=== PATIENT | male | born 1955 | race Caucasian/White ===

== ENCOUNTER → 2016-09-09 | Day surgery (SDC) | payer MEDICARE, OTHER ==
[~2016-09-09] VITALS: Ht 167.6 cm; Wt 70.5 kg
[~2016-09-09] MED LIST: ACET325T PO; ACIDCAP5; AMBI10TA PO; AMLO5 PO; CEFT500T3 PO; CITRSOL3 PO; CLON0.1T PO; CYAN100015 BUCCAL; DILT-47 PO; DO NOT ADM ANY ANTICOAGULANT DRUGS XX PRN; DOCU100C PO; DULC10SU3 RECTAL; FAMOTIDINE 20 MG/2 ML VIAL ONE; GABA100C4 PO; INSULIN HUMAN REGULAR 1,000 UNITS/10 ML VIAL SQ PRN; IPRASOL INH; LACTATED RINGER'S 1000 ML INJ 1,000 ML IV ONE; LACTATED RINGER'S 1000 ML IV SCH; LEVA750T PO; LEVO500T3 PO; LORA-373 PO; LORA10TA PO; MAGNSOL2 PO; MEGE40SU PO; METOPROLOL TARTRATE 25 MG TAB PO PRN; MIDAZOLAM HCL 2 MG/2 ML VIAL ONE; MILKSUS PO; MULTTAB67 PO; NUED20CA PO; ONDANSETRON HCL 4 MG/2 ML VIAL IV PUSH ONE; ONDANSETRON HCL 4 MG/2 ML VIAL IV PUSH PRN; OXYC-405 PO; OXYC20TA17 PO; PERC10TA27 PO; PERC5TAB12 PO; PHENYLEPH/NS 1000 MCG/10 ML SYR IV ONE; PROPOFOL 200 MG/20 ML AMP IV ONE; RISP.25 PO; SODIUM CHLORID 0.9% 500 ML IV SCH; ePHEDrine/NS 50 MG/5 ML SYR IV ONE; oxyCODONE/ACETAMINOPHEN 5 MG/325 MG TAB PO PRN
[2016-09-09 07:47] VITALS: BP 107/65; PULSE 102; RESP 18; TEMP 98.1; O2SAT 93
[2016-09-09 08:51] LABS: AUTOMATED NEUTROPHIL # 6.9 TH/MM3 (1.8-7.7); BASOPHIL # 0.1 TH/MM3 (0-0.2); BASOPHIL % 0.8 % (0.0-2.0); EOSINOPHIL # 0.2 TH/MM3 (0-0.4); EOSINOPHIL % 2.5 % (0.0-4.0); HEMATOCRIT 37.4 % (39.0-51.0); HEMO FLAGS DIFF FINAL; LYMPH % 11.5 % (9.0-44.0); MEAN CELL VOLUME 92.5 FL (80.0-100.0); MEAN CORPUSCULAR HEMOGLOBIN 29.6 PG (27.0-34.0); MONO % 7.6 % (0.0-8.0); NEUT % 77.6 % (16.0-70.0); PLATELET COUNT 252 TH/MM3 (150-450); RED BLOOD COUNT 4.05 MIL/MM3 (4.50-5.90); RED CELL DISTRIBUTION WIDTH 15.4 % (11.6-17.2); WHITE BLOOD COUNT 8.8 TH/MM3 (4.0-11.0)
--- NOTE | 2016-09-09 09:21 | RADRPT ---
EXAM DATE/TIME: 09/09/2016 07:31 [facility] COMPARISON: CT ABDOMEN & PELVIS W/O CONTRAST, May 11, 2016, 1:17. INDICATIONS : Evaluate abdomen for pre-op clearance. MEDICAL HISTORY : Hypertension. Chronic obstructive pulmonary disease. SURGICAL HISTORY : None. ENCOUNTER: Initial ACUITY: 1 day PAIN SCORE: 0/10 LOCATION: Abdomen. FINDINGS: Supine view of the abdomen was performed. The abdominal bowel gas pattern is normal. No abnormal ma sses,, or organomegaly is seen. The osseous structures are unremarkable. There is a right ureteral s tent in place no calculi along the course of this. Multiple left renal calculi are appreciated as not ed on the remote CT scan. CONCLUSION: Right ureteral stent in place. Multiple left renal calculi Marciano Villa MD on September 09, 2016 at 9:18 Board Certified Radiologist. This report was verified electronically.
[2016-09-09 12:50] VITALS: TEMP 98
[2016-09-09 14:30] VITALS: BP 100/80; PULSE 108; RESP 18; O2SAT 94
--- NOTE | 2016-09-15 13:20 | MP ---
cc: KENYON ROSAS MD DATE OF SURGERY September 09, 2016 INDICATIONS FOR PROCEDURE The case of a 61-year-old gentleman with multiple left renal calculi who presents today to undergo extracorporeal shockwave lithotripsy. PREOPERATIVE DIAGNOSIS Multiple left renal calculi. POSTOPERATIVE DIAGNOSIS Multiple left renal calculi. ATTENDING SURGEON Dr. Rosas. ANESTHESIA General. PROCEDURE PERFORMED Extracorporeal shockwave lithotripsy of multiple left-sided renal calculi. COMPLICATIONS None. ESTIMATED BLOOD LOSS None. SPECIMENS None. OPERATIVE PROCEDURE IN DETAIL The patient was brought to the operating room suite and placed on the lithotripsy table. He was then placed under general anesthesia. After an appropriate time-out was undertaken, the patient's cluster of left renal stones were localized and he subsequently received shock wave lithotripsy. The patient was noted to have a cluster of stones centrally located as well as some more peripherally located stones. The focus of attention was towards the cluster of stones involving the mid-aspect of the left kidney. The patient ended up receiving a total of 3000 shocks with a maximum power level setting of 20 utilizing the [employer] Piezolith 3000 device. At the conclusion of the procedure the stones did appear somewhat spread out and plastering contractor in intensity consistent with at least some degree of fragmentation. The patient tolerated the procedure without complications and was transferred to the PACU in satisfactory condition. Kenyon Rosas MD BPS/SSB /12:04 PM /1:14 PM
== END | disposition home or self-care (01) ==
LOC: HSDC 06:46
PROVIDERS: ATTEND Urology
DX: N20.0 Calculus of kidney (principal)
CPT/HCPCS: 00873; 50590; 74000; 85025; J2250; J2370; J2405; J7120

== ENCOUNTER 2016-10-14 06:41 | Inpatient (IN) | payer MEDICARE, OTHER ==
[~2016-10-14] VITALS: Ht 167.6 cm; Wt 53.5 kg
[~2016-10-14 06:41] MED LIST changes: -ACIDCAP5; -CEFT500T3 PO; -CYAN100015 BUCCAL; -DO NOT ADM ANY ANTICOAGULANT DRUGS XX PRN; -DULC10SU3 RECTAL; -FAMOTIDINE 20 MG/2 ML VIAL ONE; -INSULIN HUMAN REGULAR 1,000 UNITS/10 ML VIAL SQ PRN; -LACTATED RINGER'S 1000 ML INJ 1,000 ML IV ONE; -LACTATED RINGER'S 1000 ML IV SCH; -LEVA750T PO; -MAGNSOL2 PO; -MEGE40SU PO; -METOPROLOL TARTRATE 25 MG TAB PO PRN; -MIDAZOLAM HCL 2 MG/2 ML VIAL ONE; -MULTTAB67 PO; -ONDANSETRON HCL 4 MG/2 ML VIAL IV PUSH ONE; -ONDANSETRON HCL 4 MG/2 ML VIAL IV PUSH PRN; -OXYC20TA17 PO; -PERC5TAB12 PO; -PHENYLEPH/NS 1000 MCG/10 ML SYR IV ONE; -PROPOFOL 200 MG/20 ML AMP IV ONE; -RISP.25 PO; -SODIUM CHLORID 0.9% 500 ML IV SCH; -ePHEDrine/NS 50 MG/5 ML SYR IV ONE; -oxyCODONE/ACETAMINOPHEN 5 MG/325 MG TAB PO PRN
[2016-10-14 06:50] VITALS: BP 101/62; PULSE 103; RESP 20; TEMP 97.9; O2SAT 90
[2016-10-14] MEDS ORDERED: INSULIN HUMAN REGULAR 1,000 UNITS/10 ML VIAL SQ PRN (07:00)
[2016-10-14] MEDS ORDERED: SODIUM CHLORID 0.9% 500 ML IV SCH (07:00)
[2016-10-14] MEDS ORDERED: ceFAZolin 1,000 MG/NS 100 ML IV SCH ×2 (07:00)
[2016-10-14] MEDS ORDERED: METOPROLOL TARTRATE 25 MG TAB PO PRN (07:00)
[2016-10-14] MEDS: LACTATED RINGER'S 1000 ML IV SCH (07:45)
--- NOTE | 2016-10-14 07:53 | RADRPT ---
EXAM DATE/TIME: 10/14/2016 07:25 [facility] COMPARISON: ABDOMEN KUB ONLY, September 09, 2016, 7:31. INDICATIONS : Pre op right lithotripsy. MEDICAL HISTORY : None. SURGICAL HISTORY : None. ENCOUNTER: Initial ACUITY: 1 day PAIN SCORE: Non-responsive. LOCATION: Right abdomen. FINDINGS: Supine view of the abdomen was performed. The right nephroureteral stent in good position. Multiple right-sided renal calculi the largest measuring 13 mm. And 9 and 8 mm calculi are also seen. Several other smaller ones are noted. No calculi seen along the course of the stent. Multiple left-sided prerna l calculi appear unchanged. The abdominal bowel gas pattern is normal. No abnormal masses, calcifica tions, or organomegaly is seen. Left femoral neck fracture with displacement again seen. CONCLUSION: 1. Right sided nephroureteral stent with multiple right-sided calculi the largest measuring 13 mm. 2. Multiple left-sided renal calculi appear unchanged. Fahad Uribe MD on October 14, 2016 at 7:49 Board Certified Radiologist. This report was verified electronically.
[2016-10-14 08:07] LABS: BASOPHIL % 0.2 % (0.0-2.0); EOSINOPHIL % 0.4 % (0.0-4.0); HEMATOCRIT 34.7 % (39.0-51.0); LYMPH % 4.2 % (9.0-44.0); LYMPHOCYTE # 0.5 TH/MM3 (1.0-4.8); MEAN CELL VOLUME 92.2 FL (80.0-100.0); MEAN CORPUSCULAR HEMOGLOBIN 30.3 PG (27.0-34.0); MEAN CORPUSCULAR HGB CONC 32.9 % (32.0-36.0); MONO % 3.6 % (0.0-8.0); NEUT % 91.6 % (16.0-70.0); PLATELET COUNT 80 TH/MM3 (150-450); RED BLOOD COUNT 3.77 MIL/MM3 (4.50-5.90); RED CELL DISTRIBUTION WIDTH 14.8 % (11.6-17.2); WHITE BLOOD COUNT 10.9 TH/MM3 (4.0-11.0)
[2016-10-14 08:10] LABS: HEMO FLAGS AUTO DIFF
[2016-10-14 08:50] LABS: BANDS 16 % (0-6); EOSINOPHILS 1 % (0-4); NEUTROPHIL # MANUAL DIFF 10.2 TH/MM3 (1.8-7.7); PLATELET ESTIMATE SMEAR LOW (NORMAL); PLATELET MORPHOLOGY NORMAL (NORMAL); POLYS (SEG NEUTROPHILS) 78 % (16-70); SCAN/DIFF FINAL DIFF MANUAL; WBC DIFF SAMPLE 100
[2016-10-14] MEDS ORDERED: ACETAMINOPHEN 325 MG TAB PO PRN ×2 (11:45)
[2016-10-14] MEDS ORDERED: RESP: ALBUTEROL 2.5 MG/IPRATROPIUM 0.5 MG NEB (PRN) NEB (11:45)
[2016-10-14] MEDS ORDERED: MAGNESIUM HYDROXIDE SUSP 30 ML CUP PO PRN (11:45)
[2016-10-14] MEDS ORDERED: ONDANSETRON HCL 4 MG/2 ML VIAL IVP PRN (11:45)
[2016-10-14] MEDS ORDERED: SODIUM CHLORIDE 0.9% FLUSH 5 ML FLUSH FLUSH PRN (11:45)
[2016-10-14] MEDS ORDERED: NALOXONE HCL 0.4 MG/ML AMP IV PRN (11:45)
--- NOTE | 2016-10-14 11:54 | HHI.HP ---
[facility] Primary Care Physician No Primary Care Physician Admission Diagnosis Diagnoses: (1) Thrombocytopenia (2) History of CVA (cerebrovascular accident) (3) Nephrolithiasis Chief Complaint: Abnormal lab Travel History International Travel<30 Days: No Contact w/Intl Traveler <30 Da: No Traveled to Known Affected Are: No History of Present Illness 61 year-old male with a history of prior CVA with residual left-sided hemiparesis, cerebral aneurysm status post coiling, bilateral renal calculi with retained double-J stent in place who was scheduled to undergo repeat right sided ESWL today 10/14/16 by urology however patient was found to have abnormal lab including platelet of 80. Patient denies any history of easy bruising, GI bleed, hemoptysis, hematuria. He is currently a resident of a local nursing facility, where patient is being treated with Nuedexta. He was seen in same day surgery, and only alert and oriented to self, Review of Systems Other 12 systems reviewed and are negative except for the one mentioned in the history of present illness Past Family Social History Past Medical History Prior history of CVA with left-sided hemiparesis Hypertension History of bilateral renal calculi Past Surgical History Prior coronary of cerebral aneurysm Kidney stone removed in the past, lithotripsy 05/13/16 TURP Reported Medications See EMR Allergies: Coded Allergies: No Known Allergies (Unverified , 10/14/16) Family History Father from complication of lung cancer Social History No history of tobacco, alcohol or illicit drug intake. Patient is a resident of a local halfway facility Physical Exam Vital Signs Vital Signs Date Time Temp Pulse Resp B/P Pulse Ox O2 Delivery O2 Flow Rate FiO2 10/14/16 06:50 97.9 103 20 101/62 90 Physical Exam GENERAL: This is a well-nourished, well-developed patient, in no apparent distress with left-sided hemiparesis SKIN: No rashes, ecchymoses or lesions. Cool and dry. HEAD: Atraumatic. Normocephalic. No temporal or scalp tenderness. EYES: Pupils equal round and reactive. Extraocular motions intact. No scleral icterus. No injection or drainage. ENT: Nose without bleeding, purulent drainage or septal hematoma. Throat without erythema, tonsillar hypertrophy or exudate. Uvula midline. Airway patent. NECK: Trachea midline. No JVD or lymphadenopathy. Supple, nontender, no meningeal signs. CARDIOVASCULAR: Regular rate and rhythm without murmurs, gallops, or rubs. RESPIRATORY: Clear to auscultation. Breath sounds equal bilaterally. No wheezes , rales, or rhonchi. GASTROINTESTINAL: Abdomen soft, non-tender, nondistended. No hepato-splenomegaly , or palpable masses. No guarding. MUSCULOSKELETAL: Extremities without clubbing, cyanosis, or edema. splint applied to left lower extremity NEUROLOGICAL: Awake and alert. Cranial nerves II through XII intact. Motor and sensory grossly within normal limits. Five out of 5 muscle strength in RUE/RLL. Left upper extremity hemiparesis. Normal speech. Laboratory Laboratory Tests Test 10/14/16 07:55 White Blood Count 10.9 Red Blood Count 3.77 Hemoglobin 11.4 Hematocrit 34.7 Mean Corpuscular Volume 92.2 Mean Corpuscular Hemoglobin 30.3 Mean Corpuscular Hemoglobin 32.9 Concent Red Cell Distribution Width 14.8 Platelet Count 80 Mean Platelet Volume 10.3 Neutrophils (%) (Auto) 91.6 Lymphocytes (%) (Auto) 4.2 Monocytes (%) (Auto) 3.6 Eosinophils (%) (Auto) 0.4 Basophils (%) (Auto) 0.2 Neutrophils # (Auto) 10.0 Lymphocytes # (Auto) 0.5 Monocytes # (Auto) 0.4 Eosinophils # (Auto) 0.0 Basophils # (Auto) 0.0 CBC Comment AUTO DIFF Differential Total Cells 100 Counted Neutrophils % (Manual) 78 Band Neutrophils % 16 Lymphocytes % 2 Monocytes % 3 Eosinophils % 1 Neutrophils # (Manual) 10.2 Differential Comment FINAL DIFF MANUAL Platelet Estimate LOW Platelet Morphology Comment NORMAL Result Diagram: 10/14/16 0755 Imaging Last Impressions Abdomen X-Ray 10/14/16 0000 Signed Impressions: Service Date/Time: Friday, October 14, 2016 07:25 - CONCLUSION: 1. Right sided nephroureteral stent with multiple right-sided calculi the largest measuring 13 mm. 2. Multiple left-sided renal calculi appear unchanged. Fahad Uribe MD Assessment and Plan Problem List: (1) Thrombocytopenia ICD Code: D69.6 Status: Acute (2) Nephrolithiasis ICD Code: N20.0 Status: Acute (3) History of CVA (cerebrovascular accident) ICD Code: Z86.73 Status: Acute Assessment and Plan 61-year-old male with 1-Thrombocytopenia: Platelet of 80,patient denies any recent bleeding history. Will hold Nuedexta and consult hematology for further assistance with clearance for ESWL. AT This point patient does not need any platelet transfusion 2-History of renal calculi: Abdomen x-ray negative per review with finding of Right sided nephroureteral stent with multiple right-sided calculi the largest measuring 13 mm. 2. Multiple left-sided renal calculi appear unchanged. I discussed the case with Dr. Orlando, urology, however he stated patient can only be scheduled for ESWL once a week, therefore if thrombocytopenia resolved he would proceed with the procedure next week. 3-Hypertension: Resume Norvasc, Cardizem 4-Other chronic medical conditions: Resume outpatient medication 5-DVT prophylaxis: SCDs to right lower extremity only Check CBC, BMP, UA Code Status Full code Discussed Condition With Patient Fahad Chaidez MD Oct 14, 2016 11:54
[2016-10-14] MEDS ORDERED: LEVA750T PO (12:08)
[2016-10-14] MEDS ORDERED: OXYC20TA17 PO (12:08)
[2016-10-14] MEDS ORDERED: AMBI10TA PO (12:08)
--- NOTE | 2016-10-14 12:45 | PD.CONS ---
HPI Service Urology Consult Requested By Primary Care Physician No Primary Care Physician Diagnosis: (1) Thrombocytopenia ICD Code: D69.6 (2) Nephrolithiasis ICD Code: N20.0 (3) History of CVA (cerebrovascular accident) ICD Code: Z86.73 History of Present Illness 61-year-old male who was initially admitted today to undergo right extraportal shockwave lithotripsy. He was noted to have a platelet count of 80,000 and the surgery was canceled. At this consult was ordered and Dr. West has seen and evaluated the patient. He notes that he is on the current medication that may decrease his platelet count (Nuedexta) and a hematology consult is currently pending. Patient underwent cystoscopy right double-J stent insertion back at the end of April. He last underwent left extracoporeal shockwave lithotripsy at the end of August for multiple small stones in the left kidney. He has remaining stones on KUB x-ray today both in the left kidney and the right kidney. Review of Systems ROS Limitations: Altered Mental Status Ears, nose, mouth, throat: DENIES: Tinnitus Respiratory: DENIES: Cough Cardiovascular: DENIES: Chest pain Gastrointestinal: DENIES: Abdominal pain Musculoskeletal: COMPLAINS OF: Joint pain Integumentary: COMPLAINS OF: Rash, DENIES: Abnormal pigmentation Hematologic/lymphatic: DENIES: Bruising Immunologic/allergic: DENIES: Eczema Neurologic: COMPLAINS OF: Abnormal gait Past Family Social History Past Medical History GERD Hyperlipidemia Nephrolithiasis BPH with obstruction CVA Hypertension Past Surgical History TURP Coiling of cerebral aneurysm Lithotripsy for kidney stones Cystoscopy with stent insertion Allergies: Coded Allergies: No Known Allergies (Unverified , 10/14/16) Family History Lung cancer Social History Currently resides in a [facility] Denies smoking, drinking, using drugs Physical Exam Vital Signs Vital Signs Date Time Temp Pulse Resp B/P Pulse Ox O2 Delivery O2 Flow Rate FiO2 10/14/16 06:50 97.9 103 20 101/62 90 Physical Exam GENERAL: This is a well-nourished, well-developed patient, in no apparent distress. SKIN: No rashes, ecchymoses or lesions. Cool and dry. HEAD: Atraumatic. Normocephalic. No temporal or scalp tenderness. EYES: Pupils equal round and reactive. Extraocular motions intact. No scleral icterus. No injection or drainage. ENT: Nose without bleeding, purulent drainage or septal hematoma. Throat without erythema, tonsillar hypertrophy or exudate. Uvula midline. Airway patent. NECK: Trachea midline. No JVD or lymphadenopathy. Supple, nontender, no meningeal signs. CARDIOVASCULAR: Regular rate and rhythm without murmurs, gallops, or rubs. RESPIRATORY: Clear to auscultation. Breath sounds equal bilaterally. No wheezes , rales, or rhonchi. GASTROINTESTINAL: Abdomen soft, non-tender, nondistended. No hepato-splenomegaly , or palpable masses. No guarding. GENITOURINARY:aguilar in place; dark urine noted; testes descended MUSCULOSKELETAL: Extremities without clubbing, cyanosis, or edema. No joint tenderness, effusion, or edema noted. No calf tenderness. Negative Homans sign bilaterally. NEUROLOGICAL: Awake and alert. Cranial nerves II through XII intact. Motor and sensory grossly within normal limits. Five out of 5 muscle strength in all muscle groups. Normal speech. Laboratory Laboratory Tests Test 10/14/16 07:55 White Blood Count 10.9 Red Blood Count 3.77 Hemoglobin 11.4 Hematocrit 34.7 Mean Corpuscular Volume 92.2 Mean Corpuscular Hemoglobin 30.3 Mean Corpuscular Hemoglobin 32.9 Concent Red Cell Distribution Width 14.8 Platelet Count 80 Mean Platelet Volume 10.3 Neutrophils (%) (Auto) 91.6 Lymphocytes (%) (Auto) 4.2 Monocytes (%) (Auto) 3.6 Eosinophils (%) (Auto) 0.4 Basophils (%) (Auto) 0.2 Neutrophils # (Auto) 10.0 Lymphocytes # (Auto) 0.5 Monocytes # (Auto) 0.4 Eosinophils # (Auto) 0.0 Basophils # (Auto) 0.0 CBC Comment AUTO DIFF Differential Total Cells 100 Counted Neutrophils % (Manual) 78 Band Neutrophils % 16 Lymphocytes % 2 Monocytes % 3 Eosinophils % 1 Neutrophils # (Manual) 10.2 Differential Comment FINAL DIFF MANUAL Platelet Estimate LOW Platelet Morphology Comment NORMAL Result Diagram: 10/14/16 0755 Assessment and Plan Assessment and Plan 61-year-old male with history of bilateral nephrolithiasis. Patient was scheduled for ESWL therapy today but needed to be canceled due to low platelet count of 80,000. Medicine input appreciated for causation of thrombocytopenia. Hematology consult pending. We'll need to reschedule ESWL at a later date after thrombocytopenia has resolved and recommendations are implemented. Patient will need to be transferred back to the [facility] and then rescheduled for outpatient ESWL therapy. Gray Orlando DO Oct 14, 2016 12:45
[2016-10-14] MEDS ORDERED: NUED20CA PO (13:43)
[2016-10-14] MEDS ORDERED: CEFT500T3 PO (13:43)
[2016-10-14] MEDS ORDERED: cloNIDine HCL 0.1 MG TAB PO SCH (14:00)
[2016-10-14 14:01] VITALS: O2SAT 95
[2016-10-14 14:01] LABS: ALKALINE PHOSPHATASE 59 U/L (45-117); ALT (GPT) 14 U/L (12-78); ANION GAP 12 MEQ/L (5-15); AST (GOT) 33 U/L (15-37); BICARBONATE 24.9 MEQ/L (21.0-32.0); CHLORIDE 106 MEQ/L (98-107); GLOMERULAR FILTRATION RATE 23 ML/MIN (>89); SODIUM (NA) 143 MEQ/L (136-145); TOTAL BILIRUBIN ADULT 0.6 MG/DL (0.2-1.0)
[2016-10-14 14:08] LABS: BLOOD UREA NITROGEN 50 MG/DL (7-18)
[2016-10-14 14:23] LABS: BLOOD, URINE MOD (NEG); GLUCOSE,URINE NEG (NEG); KETONE, URINE NEG (NEG); MUCUS URINE FEW /lpf (OCC); NITRITE,URINE NEG (NEG); SQUAMOUS EPITHELIAL CELL URINE 1 /hpf (0-5)
[2016-10-14 14:26] LABS: URINE COLOR RED (YELLW/STRAW)
[2016-10-14 14:28] LABS: BACTERIA, URINE FEW /hpf; COMMENT (UR) CULTURE INDICATED; CULTURE IF INDICATED CULTURE INDICATED
--- NOTE | 2016-10-14 14:28 | RADRPT ---
EXAM DATE/TIME: 10/14/2016 14:12 [facility] COMPARISON: ABDOMEN KUB ONLY, October 14, 2016, 7:25. INDICATIONS : Productive cough. MEDICAL HISTORY : Hypertension. Chronic obstructive pulmonary disease. pneumonia. SURGICAL HISTORY : None. ENCOUNTER: Initial ACUITY: 1 day PAIN SCORE: Non-responsive. LOCATION: Bilateral chest FINDINGS: The heart is at the upper limits of normal in size. There is diffuse infiltrate throughout the left l ower lobe with left basilar effusion. Findings would be consistent with a left basilar pneumonia. The re is minimal patchy infiltrate seen at the right lung base as well. The bony structures are grossly intact. CONCLUSION: 1. Diffuse infiltrate throughout the left lung base concerning for a left basilar pneumonia. Raffy Wyatt MD on October 14, 2016 at 14:25 Board Certified Radiologist. This report was verified electronically.
[2016-10-14] MEDS ORDERED: DOCUSATE SODIUM 100 MG CAP PO PRN (16:45)
[2016-10-14] MEDS: ACETAMINOPHEN/HYDROcodone 325 MG/5 MG TAB PO PRN ×2 (17:30→23:38)
[2016-10-14] MEDS: cefTRIAXone INJ 1,000 MG in SODIUM CHLORIDE 0.9% INJ 100 ML IV SCH (18:00)
[2016-10-14 20:00] VITALS: BP 82/52; PULSE 86; RESP 18; TEMP 97.9; O2SAT 93
[2016-10-14] MEDS: SODIUM CHLORIDE 0.9% FLUSH 5 ML FLUSH FLUSH SCH (21:00)
[2016-10-14] MEDS: oxyCODONE HCL 20 MG CONTROLLED RELEASE TAB PO SCH (21:05)
--- NOTE | 2016-10-14 21:52 | MB ---
cc: JESIKA FISHMAN M.D., ERIC DATE OF CONSULTATION: 10/14/[address] Chaidez. REASON FOR CONSULTATION Hematology was consulted to render an opinion regarding a patient with thrombocytopenia. HISTORY OF PRESENT ILLNESS The patient is a 61-year-old male [facility] resident brought in today for outpatient lithotripsy; however, he was found to have a platelet count of 80,000 and the procedure was cancelled. The patient is not a very good historian but stated that he was recently found to have pneumonia. He stated he had cough and shortness of breath and chest x-ray showed pneumonia, he was started on antibiotic. He stated the cough has improved. He denies any chest pain. He denies any fever or chills. He has no nausea, vomiting or abdominal pain. Denies any bleeding or bruising. According to the nursing staff, the patient had dark yellow urine and has multiple decubitus ulcers. PAST MEDICAL HISTORY 1. Stroke with left-sided weakness. 2. Cerebral aneurysm status post coiling. 3. Bilateral renal calculi. 4. Hypertension. PAST SURGICAL HISTORY 1. Bilateral double-J stent placement. 2. Coiling of the cerebral aneurysm. 3. Lithotripsy in August. 4. TURP. FAMILY HISTORY Noncontributory. He has a brother in [place]. He has no children. SOCIAL HISTORY He does not smoke or drink alcohol. He resides in the [facility]. ALLERGIES NO KNOWN DRUG ALLERGIES. MEDICATIONS 1. Norvasc. 2. Cardizem. 3. Loratadine. 4. Zithromax. 5. OxyContin. 6. Ceftriaxone. 7. Cephazolin. 8. Levaquin listed on his [facility] record. 9. Nuedexta also listed. REVIEW OF SYSTEMS CONSTITUTIONAL: Denies any fever or chills. EYES: Denies any blurry vision, double vision. ENT: Denies any mouth sores or voice changes. CARDIOVASCULAR: Denies any chest pressure or palpitations. RESPIRATORY: As above. GASTROINTESTINAL: Denies any nausea, vomiting or abdominal pain. Denies any melena or hematochezia. GENITOURINARY: As above. MUSCULOSKELETAL: A recent fracture of the left hip after a fall. HEMATOLOGIC: As above. ENDOCRINE: Negative. DERMATOLOGIC: As above. PSYCHIATRIC: Negative. NEUROLOGIC: Negative. PHYSICAL EXAMINATION VITAL SIGNS: Temperature 97.1, blood pressure 105/66, O2 saturation 95% on 4 liters nasal cannula. GENERAL: He is alert, oriented, he looks very weak and older than stated age. HEENT: Atraumatic, normocephalic. Pupils equal, round and reactive to light. Extraocular muscles intact. No scleral icterus. Oropharynx - dry mucosa, no lesion. NECK: No thyromegaly. No palpable mass. LYMPHATIC: No palpable cervical, clavicular, axillary or inguinal lymph nodes. CARDIOVASCULAR: Regular S1, S2. LUNGS: Clear to auscultation anteriorly. ABDOMEN: Soft, nontender. I could not palpate liver or spleen. EXTREMITIES: No cyanosis, no clubbing, no edema. The left lower extremity in a soft cast. SKIN: Decubitus ulcer. NEUROLOGIC: Left-sided hemiparesis. LABORATORY DATA Reviewed. ASSESSMENT 1. Thrombocytopenia which appeared to be acute. His platelet count in August of 2016 was 252,000. Today his platelet count was 80,000. I think the thrombocytopenia is due to a consumptive process. He possibly has DIC due to recent pneumonia. He may also have consumptive process from the nonhealing hip fracture and decubitus ulcer and wound. He has no bleeding noted. I am going to check his DIC panel and monitor his CBC, hopefully it will trend back up once his infection is treated. Nuedexta can also cause thrombocytopenia and it has been discontinued. 2. Pneumonia. He stated he was diagnosed with pneumonia while in the [place] [facility] where he was treated with Levaquin. His repeat chest x-ray showed diffuse infiltrates throughout the left lung base. He was started back on Rocephin and azithromycin. 3. Decubitus ulcer. Wound care has been consulted. 4. Bilateral renal calculi and double J stent placement. The lithotripsy was cancelled today because of the low platelet count. 5. Mild anemia, likely due to underlying infection. We will check an iron study and a vitamin study also. 6. History of stroke with left-sided hemiparesis. 7. Left hip fracture. He did not have surgery. RECOMMENDATIONS 1. Proceed anemia workup. 2. Check DIC panel. 3. Monitor CBC. 4. Continue antibiotic per primary team. 5. Nuedexta has been discontinued. Thank you Dr. Chaidez for asking me to see this patient. MD MINDY Solorio/DANY /6:16 PM /9:23 PM [facility]
[2016-10-15] VITALS (11 sets, daily range): BP systolic 82–107; BP diastolic 50–63; PULSE 77–96; RESP 16–18; TEMP 97.4–98.7; O2SAT 93–100
[2016-10-15] MEDS: LACTATED RINGER'S 1000 ML IV SCH (07:00)
[2016-10-15 07:55] LABS: AUTOMATED NEUTROPHIL # 5.4 TH/MM3 (1.8-7.7); BASOPHIL % 0.1 % (0.0-2.0); EOSINOPHIL # 0.1 TH/MM3 (0-0.4); EOSINOPHIL % 1.8 % (0.0-4.0); HEMATOCRIT 29.3 % (39.0-51.0); LYMPH % 8.3 % (9.0-44.0); LYMPHOCYTE # 0.5 TH/MM3 (1.0-4.8); MEAN CELL VOLUME 90.5 FL (80.0-100.0); MEAN CORPUSCULAR HEMOGLOBIN 30.5 PG (27.0-34.0); MEAN CORPUSCULAR HGB CONC 33.7 % (32.0-36.0); MONO % 4.8 % (0.0-8.0); PLATELET COUNT 59 TH/MM3 (150-450); RED BLOOD COUNT 3.24 MIL/MM3 (4.50-5.90); RED CELL DISTRIBUTION WIDTH 14.7 % (11.6-17.2); WHITE BLOOD COUNT 6.4 TH/MM3 (4.0-11.0)
[2016-10-15 08:02] LABS: RETIC % 0.4 % (0.4-3.0)
[2016-10-15 08:04] LABS: HEMO FLAGS AUTO DIFF
[2016-10-15 08:11] LABS: APTT (PATIENT) 36.6 SEC (24.3-30.1); PROTHROMBIN TIME - PATIENT 11.6 SEC (9.8-11.6)
[2016-10-15] MEDS: DILTIAZEM-CD 300 MG CAP ER PO SCH ×2 (08:38→11:34)
[2016-10-15] MEDS: AZITHROMYCIN 250 MG TAB PO SCH (08:38)
[2016-10-15] MEDS: amLODIPine BESYLATE 5 MG TAB PO SCH (08:38)
[2016-10-15] MEDS: LORATADINE 10 MG TAB PO SCH (08:39)
[2016-10-15] MEDS: SODIUM CHLORIDE 0.9% FLUSH 5 ML FLUSH FLUSH SCH ×2 (08:39→21:28)
[2016-10-15] MEDS: oxyCODONE HCL 20 MG CONTROLLED RELEASE TAB PO SCH ×2 (08:39→21:00)
[2016-10-15 08:54] LABS: ALKALINE PHOSPHATASE 55 U/L (45-117); ALT (GPT) 10 U/L (12-78); ANION GAP 10 MEQ/L (5-15); AST (GOT) 31 U/L (15-37); BICARBONATE 27.6 MEQ/L (21.0-32.0); BLOOD UREA NITROGEN 46 MG/DL (7-18); CHLORIDE 108 MEQ/L (98-107); FERRITIN 717 NG/ML (26-388); GLOMERULAR FILTRATION RATE 29 ML/MIN (>89); LDH SERUM 141 U/L (87-241); SODIUM (NA) 146 MEQ/L (136-145); TOTAL BILIRUBIN ADULT 0.5 MG/DL (0.2-1.0); TRANSFERRIN IRON PROFILE 89 MG/DL (200-360)
[2016-10-15 09:08] LABS: POTASSIUM 2.6 MEQ/L (3.5-5.1)
[2016-10-15 09:14] LABS: BANDS 25 % (0-6); EOSINOPHILS 3 % (0-4); NEUTROPHIL # MANUAL DIFF 5.8 TH/MM3 (1.8-7.7); PLATELET ESTIMATE SMEAR LOW (NORMAL); PLATELET MORPHOLOGY NORMAL (NORMAL); POLYS (SEG NEUTROPHILS) 66 % (16-70); WBC DIFF SAMPLE 100
[2016-10-15 09:15] LABS: SCAN/DIFF FINAL DIFF MANUAL
--- NOTE | 2016-10-15 10:19 | PD.ONC.PN ---
Subjective Subjective Remarks Afebrile overnight. Patient resting comfortably without complaint. Objective Data Date Time Temp Pulse Resp B/P Pulse Ox O2 Delivery O2 Flow Rate FiO2 10/15/16 08:39 96 107/63 10/15/16 08:00 98.2 90 16 96/58 93 10/15/16 04:00 98.5 93 18 104/60 100 10/15/16 00:00 97.5 86 18 83/52 96 10/14/16 20:00 97.9 86 18 82/52 93 10/14/16 14:01 95 Nasal Cannula 4.00 10/14/16 13:49 Nasal Cannula 2 10/14/16 13:47 97.1 92 24 105/66 87 Result Diagram: 10/15/16 0658 10/15/16 0658 Laboratory Results Laboratory Tests Test 10/14/16 10/14/16 10/15/16 13:36 13:40 06:58 Sodium Level 143 MEQ/L 146 MEQ/L Potassium Level 3.0 MEQ/L 2.6 MEQ/L Chloride Level 106 MEQ/L 108 MEQ/L Carbon Dioxide Level 24.9 MEQ/L 27.6 MEQ/L Anion Gap 12 MEQ/L 10 MEQ/L Blood Urea Nitrogen 50 MG/DL 46 MG/DL Creatinine 2.81 MG/DL 2.27 MG/DL Estimat Glomerular Filtration 23 ML/MIN 29 ML/MIN Rate Random Glucose 134 MG/DL 84 MG/DL Calcium Level 7.7 MG/DL 7.6 MG/DL Total Bilirubin 0.6 MG/DL 0.5 MG/DL Aspartate Amino Transf 33 U/L 31 U/L (AST/SGOT) Alanine Aminotransferase 14 U/L 10 U/L (ALT/SGPT) Alkaline Phosphatase 59 U/L 55 U/L Total Protein 5.8 GM/DL 5.6 GM/DL Albumin 2.1 GM/DL 1.9 GM/DL Urine Color RED Urine Turbidity CLOUDY Urine pH 6.0 Urine Specific [place] 1.017 Urine Protein 100 mg/dL Urine Glucose (UA) NEG mg/dL Urine Ketones NEG mg/dL Urine Occult Blood MOD Urine Nitrite NEG Urine Bilirubin NEG Urine Urobilinogen LESS THAN 2.0 MG/DL Urine Leukocyte Esterase LARGE Urine RBC /hpf Urine WBC 60 /hpf Urine Squamous Epithelial 1 /hpf Cells Urine Calcium Oxalate Crystals /hpf Urine Bacteria FEW /hpf Urine Mucus FEW /lpf Microscopic Urinalysis Comment CULTURE INDICATED White Blood Count 6.4 TH/MM3 Red Blood Count 3.24 MIL/MM3 Hemoglobin 9.9 GM/DL Hematocrit 29.3 % Mean Corpuscular Volume 90.5 FL Mean Corpuscular Hemoglobin 30.5 PG Mean Corpuscular Hemoglobin 33.7 % Concent Red Cell Distribution Width 14.7 % Platelet Count 59 TH/MM3 Mean Platelet Volume 9.7 FL Neutrophils (%) (Auto) 85.0 % Lymphocytes (%) (Auto) 8.3 % Monocytes (%) (Auto) 4.8 % Eosinophils (%) (Auto) 1.8 % Basophils (%) (Auto) 0.1 % Neutrophils # (Auto) 5.4 TH/MM3 Lymphocytes # (Auto) 0.5 TH/MM3 Monocytes # (Auto) 0.3 TH/MM3 Eosinophils # (Auto) 0.1 TH/MM3 Basophils # (Auto) 0.0 TH/MM3 CBC Comment AUTO DIFF Differential Total Cells 100 Counted Neutrophils % (Manual) 66 % Band Neutrophils % 25 % Lymphocytes % 3 % Monocytes % 3 % Eosinophils % 3 % Neutrophils # (Manual) 5.8 TH/MM3 Differential Comment FINAL DIFF MANUAL Platelet Estimate LOW Platelet Morphology Comment NORMAL Reticulocyte Count 0.4 % Absolute Reticulocyte Count 13.4 MIL/L Prothrombin Time 11.6 SEC Prothromb Time International 1.0 RATIO Ratio Activated Partial 36.6 SEC Thromboplast Time Fibrinogen 489 mg/dL Iron Level 71 MCG/DL Total Iron Binding Capacity 125 MCG/DL Percent Iron Saturation 57.0 % Ferritin 717 NG/ML Lactate Dehydrogenase 141 U/L Vitamin B12 Level 225 PG/ML Folate 3.5 NG/ML Culture Results Microbiology Date/Time Procedure Status Source Growth 10/14/16 13:40 Urine Culture Received Urine Clean Catch Pending Administered Medications Medications (Trade) Dose Ordered Sig/Janelle Route PRN Reason Start Time Stop Time Status Last Admin Dose Admin Lactated Ringer's (Lr 1000 ml Inj) 1,000 ml @ 30 mls/hr Q24H IV 10/14/16 07:00 10/14/16 07:45 IV Flush (NS Flush) 2 ml BID FLUSH 10/14/16 21:00 10/15/16 08:39 Amlodipine Besylate (Norvasc) 5 mg DAILY PO 10/15/16 09:00 10/15/16 08:38 Diltiazem HCl (Cardizem Cd) 300 mg DAILY PO 10/15/16 09:00 10/15/16 08:38 Loratadine (Claritin) 10 mg DAILY PO 10/15/16 09:00 10/15/16 08:39 Oxycodone HCl 20 mg 20 mg Q12HR PO 10/14/16 21:00 10/15/16 08:39 Ceftriaxone Sodium/Sodium Chloride (Rocephin Inj/NS Inj) 100 ml @ 200 mls/hr Q24H IV 10/14/16 18:00 10/14/16 18:00 Azithromycin (Zithromax) 500 mg DAILY PO 10/15/16 09:00 10/15/16 08:38 Acetaminophen/ Hydrocodone Bitart ([place] 5-325 Mg) 1 tab Q4H PRN PO BREAKTHROUGH PAIN 10/14/16 16:45 10/14/16 23:38 Objective Remarks GENERAL: Elderly male, lying supine in bed SKIN: Warm and dry. HEAD: Normocephalic. EYES: No scleral icterus. No injection or drainage. NECK: Supple, trachea midline. CARDIOVASCULAR: Regular rate and rhythm RESPIRATORY: anterior lozano clear. GASTROINTESTINAL: Abdomen soft, non-tender, nondistended. EXTREMITIES: No cyanosis. left leg shortened NEUROLOGICAL: awake and alert. Assessment/Plan Problem List: (1) Thrombocytopenia Status: Acute Plan: --likely DIC due to recent pneumonia. --may also have consumptive process from the nonhealing hip fracture and decubitus ulcer and wound. no bleeding noted. (2) Pneumonia Status: Acute Plan: --was diagnosed with pneumonia [place] in the detention where he was treated with Levaquin. --repeat chest x-ray showed diffuse infiltrates throughout the left lung base. --started back on Rocephin and azithromycin inpatient (3) Normocytic anemia Status: Acute Plan: --Mild anemia, likely due to underlying infection. --B12/folate WNL --iron studies more consistent with anemia of chronic disease Assessment 61y/o male with thrombocytopenia. --initially admitted for outpatient lithotripsy and incidentally found to have platelet count of 80K. --multiple decubitus ulcers h/o Stroke with left-sided weakness. Cerebral aneurysm status post coiling. Bilateral renal calculi and double J stent placement. Hypertension. Left hip fracture, non-surgical candidate Plan 1. monitor CBC 2. antibiotics per primary team 3. supportive care Attending Statement The exam, history, and the medical decision-making described in the above note were completed with the assistance of the mid-level provider. I reviewed and agree with the findings presented. I attest that I had a [id number] encounter with the patient on the same day, and personally performed and documented my assessment and findings in the medical record. No bleeding noted. No apparent DIC. B12 is borderline. Will start B12 supplement. Anemia likely due to chronic kidney disease. Thrombocytopenia may be due to infection and abx. Continue to monitor. Raven Dickinson Oct 15, 2016 10:19 Jeff Jade MD Oct 15, 2016 17:12
[2016-10-15] MEDS: ACETAMINOPHEN/HYDROcodone 325 MG/5 MG TAB PO PRN (10:30)
[2016-10-15] MEDS ORDERED: POTASSIUM CL 40 MEQ/30 ML LIQ UDC PO ONE (11:00)
[2016-10-15] MEDS ORDERED: POTASSIUM CHLORIDE 25 MEQ EFFERVESCENT TAB PO ONE (11:30)
[2016-10-15] MEDS ORDERED: SODIUM CHLORID 0.9% 500 ML INJ 500 ML IV ONE ×2 (11:30→12:45)
--- NOTE | 2016-10-15 11:38 | HHI.PR ---
Subjective Remarks F-U Thrombocytopenia/pneumonia/UTI 10/15/16-patient seen and examined, alert and oriented. Currently with low BP. Initially admitted for telemetry observation however patient was started on IV antibiotics on 10/14/16 secondary to finding of pneumonia and UTI. Nurse report, patient with swallow difficulty. Objective Vitals Vital Signs Date Time Temp Pulse Resp B/P Pulse Ox O2 Delivery O2 Flow Rate FiO2 10/15/16 08:39 96 107/63 10/15/16 08:00 98.2 90 16 96/58 93 10/15/16 04:00 98.5 93 18 104/60 100 10/15/16 00:00 97.5 86 18 83/52 96 10/14/16 20:00 97.9 86 18 82/52 93 10/14/16 14:01 95 Nasal Cannula 4.00 10/14/16 13:49 Nasal Cannula 2 10/14/16 13:47 97.1 92 24 105/66 87 I/O 10/14/16 10/14/16 10/14/16 10/15/16 10/15/16 10/15/16 07:00 15:00 23:00 07:00 15:00 23:00 Intake Total 30 ml 0 ml Output Total 300 ml 175 ml Balance -270 ml -175 ml Intake Oral 30 ml 0 ml Output Urine Total 300 ml 175 ml # Bowel Movements 0 0 Result Diagram: 10/15/16 0658 10/15/16 0658 Imaging Last Impressions Chest X-Ray 10/14/16 0000 Signed Impressions: Service Date/Time: Friday, October 14, 2016 14:12 - CONCLUSION: 1. Diffuse infiltrate throughout the left lung base concerning for a left basilar pneumonia. Raffy Wyatt MD Abdomen X-Ray 10/14/16 0000 Signed Impressions: Service Date/Time: Friday, October 14, 2016 07:25 - CONCLUSION: 1. Right sided nephroureteral stent with multiple right-sided calculi the largest measuring 13 mm. 2. Multiple left-sided renal calculi appear unchanged. Fahad Uribe MD Objective Remarks GENERAL: NAD SKIN: Warm and dry. HEAD: Normocephalic. EYES: No scleral icterus. No injection or drainage. NECK: Supple, trachea midline. No JVD or lymphadenopathy. CARDIOVASCULAR: Regular rate and rhythm without murmurs, gallops, or rubs. RESPIRATORY: Breath sounds equal bilaterally. No accessory muscle use. GASTROINTESTINAL: Abdomen soft, non-tender, nondistended. MUSCULOSKELETAL: No cyanosis, or edema. Splint applied to RLE; Left upper extremity hemiparesis. BACK: Nontender without obvious deformity. No CVA tenderness. A/P Problem List: (1) Thrombocytopenia ICD Code: D69.6 Status: Acute (2) Nephrolithiasis ICD Code: N20.0 Status: Acute (3) History of CVA (cerebrovascular accident) ICD Code: Z86.73 Status: Acute (4) HCAP (healthcare-associated pneumonia) ICD Code: J18.9 Status: Acute (5) UTI (urinary tract infection) ICD Code: N39.0 Status: Acute (6) Hypotension ICD Code: I95.9 Status: Acute (7) Hypokalemia ICD Code: E87.6 Status: Acute (8) Dysphagia ICD Code: R13.10 Status: Acute Assessment and Plan 61-year-old male with 1-Thrombocytopenia: Appreciate input from hematology. Continue treatment for pneumonia and UTI and hold Nuedexta. AT This point patient does not need any platelet transfusion 2-History of renal calculi: Abdomen x-ray negative per review with finding of Right sided nephroureteral stent with multiple right-sided calculi the largest measuring 13 mm. 2. Multiple left-sided renal calculi appear unchanged. Patient to have ESWL control over the next week once thrombocytopenia improved 3-Hypertension: Secondary to hypotension, will hold Norvasc, Cardizem 4-Hypotension: Give 500 cc bolus normal saline and monitor BP. Continue to hold oral antihypertensive medications 5-HCAP: Chest x-ray noted and reviewed by me with finding of Diffuse infiltrate throughout the left lung base concerning for a left basilar pneumonia. Continue with IV antibiotics including Rocephin and azithromycin, monitor sputum, blood culture. Maintain oxygen saturation above 92%. DuoNeb when necessary. 6-UTI: Currently on IV Rocephin pending urine culture 7-Acute renal failure: Worsening renal indices, start IV fluid hydration 125cc/ hr and consider renal ultrasound. Avoid all nephrotoxic drugs and monitor BUN and creatinine 8-Other chronic medical conditions: Continue outpatient medication 9-DVT prophylaxis: SCDs to right lower extremity only 10-Physical deconditioning: PT to treat and eval 11-Decubitus ulcer: Appreciate input from wound care nurse, continue with current treatment. Repositioning every 2 hour 12-Hypokalemia: Give 75meQ every potassium 1 now 13-Dysphagia: Speech therapy consult for swallow eval Discussed with immigration case worker, change admission to inpatient for observation. Discharge Planning Discharge when medically stable Fahad Chaidez MD Oct 15, 2016 11:38
[2016-10-15] MEDS: SODIUM CHLOR 0.9% 1000 ML INJ 1,000 ML IV SCH ×2 (12:00→13:01)
--- NOTE | 2016-10-15 15:22 | HHI.PR ---
Subjective Remarks Pt resting comfortably. No complaints at present. Objective Vital Signs Vital Signs Date Time Temp Pulse Resp B/P Pulse Ox O2 Delivery O2 Flow Rate FiO2 10/15/16 13:25 90/50 10/15/16 12:36 80 82/55 10/15/16 12:00 86/51 10/15/16 11:10 98.2 91 16 84/60 93 10/15/16 08:39 96 107/63 10/15/16 08:00 98.2 90 16 96/58 93 10/15/16 04:00 98.5 93 18 104/60 100 10/15/16 00:00 97.5 86 18 83/52 96 10/14/16 20:00 97.9 86 18 82/52 93 I/O 10/14/16 10/14/16 10/14/16 10/15/16 10/15/16 10/15/16 07:00 15:00 23:00 07:00 15:00 23:00 Intake Total 30 ml 0 ml Output Total 300 ml 175 ml Balance -270 ml -175 ml Intake Oral 30 ml 0 ml Output Urine Total 300 ml 175 ml # Bowel Movements 0 0 Result Diagram: 10/15/16 0658 10/15/16 0658 Objective Remarks Abd:soft,nt,nd Gomez: urine clearing Assessment and Plan Assessment and Plan 61-year-old male with history of bilateral nephrolithiasis. Patient was scheduled for ESWL therapy today but needed to be canceled due to low platelet count of 80,000. Medicine input appreciated for causation of thrombocytopenia. Hematology consult pending. We'll need to reschedule ESWL at a later date after thrombocytopenia has resolved and recommendations are implemented. Patient will need to be transferred back to the custodial and then rescheduled for outpatient ESWL therapy. 10/15/16 61-year-old male with history of bilateral nephrolithiasis. Patient was scheduled for ESWL therapy today but needed to be canceled due to low platelet count of 80,000. Hematology input appreciated. Continue current Rx for Pneumonia and possible UTI. ESWL at later date after pt is clinically improved. Gray Orlando DO Oct 15, 2016 15:22
[2016-10-15] MEDS: cefTRIAXone INJ 1,000 MG in SODIUM CHLORIDE 0.9% INJ 100 ML IV SCH (17:09)
[2016-10-15] MEDS: CYANOCOBALAMIN 1000 MCG/ML VIAL IM SCH (17:39)
[2016-10-16] VITALS (8 sets, daily range): BP systolic 94–127; BP diastolic 55–65; PULSE 66–91; RESP 16–18; TEMP 97.3–98.4; O2SAT 91–97
[2016-10-16] MEDS: SODIUM CHLOR 0.9% 1000 ML INJ 1,000 ML IV SCH ×2 (05:24→11:50)
[2016-10-16] MEDS: LACTATED RINGER'S 1000 ML IV SCH (07:00)
[2016-10-16] MEDS: oxyCODONE HCL 20 MG CONTROLLED RELEASE TAB PO SCH ×2 (08:01→21:00)
[2016-10-16] MEDS: DILTIAZEM-CD 300 MG CAP ER PO SCH (08:02)
[2016-10-16] MEDS: amLODIPine BESYLATE 5 MG TAB PO SCH (08:02)
[2016-10-16] MEDS: CYANOCOBALAMIN 1000 MCG/ML VIAL IM SCH (08:03)
[2016-10-16] MEDS: LORATADINE 10 MG TAB PO SCH (08:03)
[2016-10-16] MEDS: AZITHROMYCIN 250 MG TAB PO SCH (08:03)
[2016-10-16] MEDS: SODIUM CHLORIDE 0.9% FLUSH 5 ML FLUSH FLUSH SCH ×2 (08:12→21:00)
[2016-10-16 08:21] LABS: BASOPHIL % 0.1 % (0.0-2.0); EOSINOPHIL # 0.4 TH/MM3 (0-0.4); EOSINOPHIL % 4.5 % (0.0-4.0); HEMATOCRIT 37.1 % (39.0-51.0); LYMPH % 6.1 % (9.0-44.0); LYMPHOCYTE # 0.5 TH/MM3 (1.0-4.8); MEAN CELL VOLUME 92.8 FL (80.0-100.0); MEAN CORPUSCULAR HEMOGLOBIN 29.7 PG (27.0-34.0); MONO % 3.5 % (0.0-8.0); NEUT % 85.8 % (16.0-70.0); PLATELET COUNT 68 TH/MM3 (150-450); RED CELL DISTRIBUTION WIDTH 14.9 % (11.6-17.2); WHITE BLOOD COUNT 8.1 TH/MM3 (4.0-11.0)
[2016-10-16 08:25] LABS: HEMO FLAGS AUTO DIFF
[2016-10-16 08:49] LABS: POTASSIUM 3.6 MEQ/L (3.5-5.1)
--- NOTE | 2016-10-16 09:17 | HHI.PR ---
Subjective Remarks F-U Thrombocytopenia/pneumonia/UTI 10/15/16-patient seen and examined, alert and oriented. Currently with low BP. Initially admitted for telemetry observation however patient was started on IV antibiotics on 10/14/16 secondary to finding of pneumonia and UTI. Nurse report, patient with swallow difficulty. 10/16/16-patient seen and examined; BP improving and patient denies any acute event overnight. Currently afebrile and no chest pain or shortness of breath. Tolerating by mouth without any complication or nausea and vomiting. Objective Vitals Vital Signs Date Time Temp Pulse Resp B/P Pulse Ox O2 Delivery O2 Flow Rate FiO2 10/16/16 04:38 97.3 79 18 113/62 97 10/16/16 04:30 98.4 66 18 127/59 93 10/15/16 23:22 97.4 86 18 102/56 95 10/15/16 21:15 98.7 84 18 100/62 97 10/15/16 14:00 77 94/55 10/15/16 13:25 90/50 10/15/16 12:36 80 82/55 10/15/16 12:00 86/51 10/15/16 11:10 98.2 91 16 84/60 93 I/O 10/15/16 10/15/16 10/15/16 10/16/16 10/16/16 10/16/16 07:00 15:00 23:00 07:00 15:00 23:00 Intake Total 0 ml 480 ml 1092 ml 1227 ml Output Total 175 ml 125 ml 500 ml Balance -175 ml 480 ml 967 ml 727 ml Intake Oral 0 ml 480 ml 240 ml 240 ml IV Total 852 ml 987 ml Output Urine Total 175 ml 125 ml 500 ml # Voids 6 # Bowel Movements 0 0 0 0 Result Diagram: 10/16/16 0713 10/16/1613 Imaging Last Impressions Chest X-Ray 10/14/16 0000 Signed Impressions: Service Date/Time: Friday, October 14, 2016 14:12 - CONCLUSION: 1. Diffuse infiltrate throughout the left lung base concerning for a left basilar pneumonia. Raffy Wyatt MD Abdomen X-Ray 10/14/16 0000 Signed Impressions: Service Date/Time: Friday, October 14, 2016 07:25 - CONCLUSION: 1. Right sided nephroureteral stent with multiple right-sided calculi the largest measuring 13 mm. 2. Multiple left-sided renal calculi appear unchanged. Fahad Uribe MD Objective Remarks GENERAL: NAD SKIN: Warm and dry. HEAD: Normocephalic. EYES: No scleral icterus. No injection or drainage. NECK: Supple, trachea midline. No JVD or lymphadenopathy. CARDIOVASCULAR: Regular rate and rhythm without murmurs, gallops, or rubs. RESPIRATORY: Breath sounds equal bilaterally. No accessory muscle use. GASTROINTESTINAL: Abdomen soft, non-tender, nondistended. MUSCULOSKELETAL: No cyanosis, or edema. Splint applied to RLE; Left upper extremity hemiparesis. BACK: Nontender without obvious deformity. No CVA tenderness. A/P Problem List: (1) Thrombocytopenia ICD Code: D69.6 Status: Acute (2) Nephrolithiasis ICD Code: N20.0 Status: Acute (3) History of CVA (cerebrovascular accident) ICD Code: Z86.73 Status: Acute (4) HCAP (healthcare-associated pneumonia) ICD Code: J18.9 Status: Acute (5) UTI (urinary tract infection) ICD Code: N39.0 Status: Acute (6) Hypotension ICD Code: I95.9 Status: Acute (7) Hypokalemia ICD Code: E87.6 Status: Acute (8) Dysphagia ICD Code: R13.10 Status: Acute Assessment and Plan 61-year-old male with 1-Thrombocytopenia: Appreciate input from hematology. Continue treatment for pneumonia and UTI and hold Nuedexta. 2-History of renal calculi: Abdomen x-ray negative per review with finding of Right sided nephroureteral stent with multiple right-sided calculi the largest measuring 13 mm. 2. Multiple left-sided renal calculi appear unchanged. Patient to have ESWL control over the next week once thrombocytopenia improved 3-Hypertension: Secondary to hypotension, continue to hold Norvasc, Cardizem 4-Hypotension: Improved with boluses NS on 10/15/16. Continue to hold oral antihypertensive medications 5-HCAP: Chest x-ray with finding of Diffuse infiltrate throughout the left lung base concerning for a left basilar pneumonia. Continue with IV antibiotics including Rocephin and azithromycin, monitor sputum, blood culture. Maintain oxygen saturation above 92%. DuoNeb when necessary. 6-UTI: Currently on IV Rocephin pending urine culture 7-Acute renal failure: Improving renal indices, continue with IV fluid hydration 125cc/hr . Avoid all nephrotoxic drugs and monitor BUN and creatinine 8-Other chronic medical conditions: Continue outpatient medication 9-DVT prophylaxis: SCDs to right lower extremity only 10-Physical deconditioning: PT to treat and eval 11-Decubitus ulcer: Appreciate input from wound care nurse, continue with current treatment. Repositioning every 2 hour 12-Hypokalemia: Resolved 13-Dysphagia: Passed swallow eval, continue with current diet. Discharge Planning Discharge when medically stable Fahad Chaidez MD Oct 16, 2016 09:17
[2016-10-16 09:31] LABS: SCAN/DIFF AUTO DIFF CONFIRMED
[2016-10-16 09:33] LABS: PLATELET ESTIMATE SMEAR LOW (NORMAL)
[2016-10-16] MEDS: LORazepam 0.5 MG TAB PO PRN (09:48)
--- NOTE | 2016-10-16 11:10 | PD.ONC.PN ---
Subjective Subjective Remarks Afebrile overnight. +cough. Patient was coughing up sputum this AM. Resting supine in bed. Requesting something to drink. Objective Data Date Time Temp Pulse Resp B/P Pulse Ox O2 Delivery O2 Flow Rate FiO2 10/16/16 10:22 94 Nasal Cannula 2.00 10/16/16 04:38 97.3 79 18 113/62 97 10/16/16 04:30 98.4 66 18 127/59 93 10/15/16 23:22 97.4 86 18 102/56 95 10/15/16 21:15 98.7 84 18 100/62 97 10/15/16 14:00 77 94/55 10/15/16 13:25 90/50 10/15/16 12:36 80 82/55 10/15/16 12:00 86/51 10/15/16 11:10 98.2 91 16 84/60 93 10/16/16 10/16/16 10/16/16 07:00 15:00 23:00 Intake Total 1227 ml Output Total 500 ml Balance 727 ml Result Diagram: 10/16/16 0713 10/16/16712 Laboratory Results Laboratory Tests Test 10/16/16 07:13 White Blood Count 8.1 TH/MM3 Red Blood Count 4.00 MIL/MM3 Hemoglobin 11.9 GM/DL Hematocrit 37.1 % Mean Corpuscular Volume 92.8 FL Mean Corpuscular Hemoglobin 29.7 PG Mean Corpuscular Hemoglobin 32.0 % Concent Red Cell Distribution Width 14.9 % Platelet Count 68 TH/MM3 Mean Platelet Volume 10.0 FL Neutrophils (%) (Auto) 85.8 % Lymphocytes (%) (Auto) 6.1 % Monocytes (%) (Auto) 3.5 % Eosinophils (%) (Auto) 4.5 % Basophils (%) (Auto) 0.1 % Neutrophils # (Auto) 7.0 TH/MM3 Lymphocytes # (Auto) 0.5 TH/MM3 Monocytes # (Auto) 0.3 TH/MM3 Eosinophils # (Auto) 0.4 TH/MM3 Basophils # (Auto) 0.0 TH/MM3 CBC Comment AUTO DIFF Differential Comment AUTO DIFF CONFIRMED Platelet Estimate LOW Sodium Level 149 MEQ/L Potassium Level 3.6 MEQ/L Chloride Level 114 MEQ/L Carbon Dioxide Level 25.0 MEQ/L Anion Gap 10 MEQ/L Blood Urea Nitrogen 33 MG/DL Creatinine 1.59 MG/DL Estimat Glomerular Filtration 44 ML/MIN Rate Random Glucose 72 MG/DL Calcium Level 7.7 MG/DL Culture Results Microbiology Date/Time Procedure Status Source Growth 10/14/16 13:40 Urine Culture - Final Complete Urine Clean Catch 10-50,000 CFU/ML MIXED CLAIRE... Administered Medications Medications (Trade) Dose Ordered Sig/Janelle Route PRN Reason Start Time Stop Time Status Last Admin Dose Admin Lactated Ringer's (Lr 1000 ml Inj) 1,000 ml @ 30 mls/hr Q24H IV 10/14/16 07:00 10/14/16 07:45 IV Flush (NS Flush) 2 ml BID FLUSH 10/14/16 21:00 10/15/16 21:28 Amlodipine Besylate (Norvasc) 5 mg DAILY PO 10/15/16 09:00 10/16/16 08:02 Diltiazem HCl (Cardizem Cd) 300 mg DAILY PO 10/15/16 09:00 10/16/16 08:02 Loratadine (Claritin) 10 mg DAILY PO 10/15/16 09:00 10/16/16 08:03 Lorazepam (Ativan) 0.5 mg Q8H PRN PO ANXIETY 10/14/16 11:45 10/16/16 09:48 Oxycodone HCl 20 mg 20 mg Q12HR PO 10/14/16 21:00 10/16/16 08:01 Ceftriaxone Sodium/Sodium Chloride (Rocephin Inj/NS Inj) 100 ml @ 200 mls/hr Q24H IV 10/14/16 18:00 10/15/16 17:09 Azithromycin (Zithromax) 500 mg DAILY PO 10/15/16 09:00 10/16/16 08:03 Acetaminophen/ Hydrocodone Bitart 1 tab 1 tab Q4H PRN PO BREAKTHROUGH PAIN 10/14/16 16:45 10/15/16 10:30 Sodium Chloride (NS 1000 ml Inj) 1,000 ml @ 125 mls/hr Q8H IV 10/15/16 11:30 10/16/16 05:24 Cyanocobalamin (Vitamin B12 Inj) 1,000 mcg DAILY IM 10/15/16 17:15 10/16/16 08:03 Objective Remarks GENERAL: Elderly male, lying supine in bed SKIN: Warm and dry. HEAD: Normocephalic. EYES: No injection or drainage. NECK: Supple, trachea midline. CARDIOVASCULAR: Regular rate and rhythm RESPIRATORY: anterior lozano clear. GASTROINTESTINAL: Abdomen soft, non-tender, nondistended. EXTREMITIES: No cyanosis. left leg shortened. NEUROLOGICAL: awake and alert. normal speech. moving all extremities. Assessment/Plan Problem List: (1) Thrombocytopenia Status: Acute Plan: --likely DIC due to recent pneumonia +hemodilution --may also have consumptive process from the nonhealing hip fracture and decubitus ulcer and wound. no bleeding noted. (2) Pneumonia Status: Acute Plan: --was diagnosed with pneumonia while in the care home where he was treated with Levaquin. --repeat chest x-ray showed diffuse infiltrates throughout the left lung base. --started back on Rocephin and Zithromax inpatient (3) Normocytic anemia Status: Acute Plan: --Mild anemia, likely due to underlying infection. --B12 low normal --will start replacement to assist with hematopoiesis --folate WNL --iron studies more consistent with anemia of chronic disease Assessment 61y/o male with thrombocytopenia. --initially admitted for outpatient lithotripsy and incidentally found to have platelet count of 80K. --multiple decubitus ulcers h/o Stroke with left-sided weakness. Cerebral aneurysm status post coiling. Bilateral renal calculi and double J stent placement. Hypertension. Left hip fracture, non-surgical candidate Plan 1. monitor CBC 2. no transfusion needed at present 3. continue antibiotics per primary 4. start B12 replacement Attending Statement The exam, history, and the medical decision-making described in the above note were completed with the assistance of the mid-level provider. I reviewed and agree with the findings presented. I attest that I had a [id number] encounter with the patient on the same day, and personally performed and documented my assessment and findings in the medical record. +cough. No bleeding. Thrombocytopenia likely due to pneumonia/infection. Platelet trended up slightly. Mild anemia due to CKD. Borderline B12, continue B12 supplement and check MMA. Raven Dickinson Oct 16, 2016 11:09 Jeff Jade MD Oct 16, 2016 15:34
[2016-10-16] MEDS: cefTRIAXone INJ 1,000 MG in SODIUM CHLORIDE 0.9% INJ 100 ML IV SCH (17:27)
[2016-10-17] MEDS ORDERED: CYCLOBENZAPRINE HCL 10 MG TAB PO ONE (00:45)
[2016-10-17 03:22] VITALS: BP 104/62; PULSE 88; RESP 16; TEMP 97.4; O2SAT 93
[2016-10-17] MEDS: LACTATED RINGER'S 1000 ML IV SCH (07:00)
[2016-10-17 08:00] VITALS: BP 113/63; PULSE 89; RESP 12; TEMP 97.6; O2SAT 98
[2016-10-17 08:19] LABS: AUTOMATED NEUTROPHIL # 7.3 TH/MM3 (1.8-7.7); BASOPHIL % 0.3 % (0.0-2.0); EOSINOPHIL # 0.4 TH/MM3 (0-0.4); EOSINOPHIL % 4.1 % (0.0-4.0); HEMATOCRIT 29.4 % (39.0-51.0); LYMPH % 7.4 % (9.0-44.0); LYMPHOCYTE # 0.6 TH/MM3 (1.0-4.8); MEAN CELL VOLUME 92.3 FL (80.0-100.0); MEAN CORPUSCULAR HGB CONC 33.6 % (32.0-36.0); MONO % 5.1 % (0.0-8.0); NEUT % 83.1 % (16.0-70.0); PLATELET COUNT 59 TH/MM3 (150-450); RED BLOOD COUNT 3.19 MIL/MM3 (4.50-5.90); RED CELL DISTRIBUTION WIDTH 14.9 % (11.6-17.2); WHITE BLOOD COUNT 8.8 TH/MM3 (4.0-11.0)
[2016-10-17 08:33] LABS: HEMO FLAGS AUTO DIFF
[2016-10-17] MEDS: CYANOCOBALAMIN 1000 MCG/ML VIAL IM SCH (08:45)
[2016-10-17] MEDS: DILTIAZEM-CD 300 MG CAP ER PO SCH (08:46)
[2016-10-17] MEDS: LORATADINE 10 MG TAB PO SCH (08:46)
[2016-10-17] MEDS: amLODIPine BESYLATE 5 MG TAB PO SCH (08:46)
[2016-10-17] MEDS: AZITHROMYCIN 250 MG TAB PO SCH (08:47)
[2016-10-17] MEDS: oxyCODONE HCL 20 MG CONTROLLED RELEASE TAB PO SCH ×2 (08:59→20:39)
[2016-10-17] MEDS: SODIUM CHLORIDE 0.9% FLUSH 5 ML FLUSH FLUSH SCH ×2 (09:00→20:41)
[2016-10-17 09:52] LABS: PLATELET ESTIMATE SMEAR LOW (NORMAL); PLATELET MORPHOLOGY NORMAL (NORMAL); SCAN/DIFF AUTO DIFF CONFIRMED
--- NOTE | 2016-10-17 10:57 | HHI.PR ---
Subjective Remarks F-U Thrombocytopenia/pneumonia/UTI 10/15/16-patient seen and examined, alert and oriented. Currently with low BP. Initially admitted for telemetry observation however patient was started on IV antibiotics on 10/14/16 secondary to finding of pneumonia and UTI. Nurse report, patient with swallow difficulty. 10/16/16-patient seen and examined; BP improving and patient denies any acute event overnight. Currently afebrile and no chest pain or shortness of breath. Tolerating by mouth without any complication or nausea and vomiting. 10/17/16-patient seen and examined, states he would like to be discharged from [place]. No acute event overnight and currently afebrile Objective Vitals Vital Signs Date Time Temp Pulse Resp B/P Pulse Ox O2 Delivery O2 Flow Rate FiO2 10/17/16 08:00 97.6 89 12 113/63 98 10/17/16 03:22 97.4 88 16 104/62 93 10/16/16 22:55 97.5 85 16 98/58 93 10/16/16 20:55 97.7 91 16 94/55 91 10/16/16 17:43 94 Nasal Cannula 2.00 10/16/16 12:00 97.8 83 18 116/65 94 I/O 10/16/16 10/16/16 10/16/16 10/17/16 10/17/16 10/17/16 07:00 15:00 23:00 07:00 15:00 23:00 Intake Total 1227 ml 2196 ml 120 ml 0 ml Output Total 500 ml 500 ml 400 ml 750 ml Balance 727 ml 1696 ml -280 ml -750 ml Intake Oral 240 ml 240 ml 120 ml 0 ml IV Total 987 ml 1956 ml Output Urine Total 500 ml 500 ml 400 ml 750 ml # Bowel Movements 0 1 0 1 Result Diagram: 10/17/1613 10/16/16712 Objective Remarks GENERAL: NAD SKIN: Warm and dry. HEAD: Normocephalic. EYES: No scleral icterus. No injection or drainage. NECK: Supple, trachea midline. No JVD or lymphadenopathy. CARDIOVASCULAR: Regular rate and rhythm without murmurs, gallops, or rubs. RESPIRATORY: Breath sounds equal bilaterally. No accessory muscle use. GASTROINTESTINAL: Abdomen soft, non-tender, nondistended. MUSCULOSKELETAL: No cyanosis, or edema. Splint applied to RLE; Left upper extremity hemiparesis. BACK: Nontender without obvious deformity. No CVA tenderness. A/P Problem List: (1) Thrombocytopenia ICD Code: D69.6 Status: Acute (2) Nephrolithiasis ICD Code: N20.0 Status: Acute (3) History of CVA (cerebrovascular accident) ICD Code: Z86.73 Status: Acute (4) HCAP (healthcare-associated pneumonia) ICD Code: J18.9 Status: Acute (5) UTI (urinary tract infection) ICD Code: N39.0 Status: Acute (6) Hypotension ICD Code: I95.9 Status: Acute (7) Hypokalemia ICD Code: E87.6 Status: Acute (8) Dysphagia ICD Code: R13.10 Status: Acute Assessment and Plan 61-year-old male with 1-Thrombocytopenia: Platelet dropping, Appreciate input from hematology. Continue treatment for pneumonia and UTI and hold Nuedexta. 2-History of renal calculi: Abdomen x-ray negative per review with finding of Right sided nephroureteral stent with multiple right-sided calculi the largest measuring 13 mm. 2. Multiple left-sided renal calculi appear unchanged. Patient to have ESWL control over the next week once thrombocytopenia improved 3-Hypertension: Secondary to hypotension, continue to hold Norvasc, Cardizem 4-Hypotension: Resolved with boluses NS on 10/15/16. Continue to hold oral antihypertensive medications 5-HCAP: Chest x-ray with finding of Diffuse infiltrate throughout the left lung base concerning for a left basilar pneumonia. Continue with IV antibiotics including Rocephin and azithromycin, monitor sputum, blood culture. Maintain oxygen saturation above 92%. DuoNeb when necessary. 6-UTI: Resolved as Urine culture negative 7-Acute renal failure: Renal indices improving, continue with IV fluid hydration 125cc/hr . Avoid all nephrotoxic drugs and monitor BUN and creatinine 8-Other chronic medical conditions: Continue outpatient medication 9-DVT prophylaxis: SCDs to right lower extremity only 10-Physical deconditioning: PT to treat and eval 11-Decubitus ulcer: Appreciate input from wound care nurse, continue with current treatment. Repositioning every 2 hour 12-Hypokalemia: Resolved 13-Dysphagia: Passed swallow eval, continue with current diet. Discharge Planning Discharge when medically stable Fahad Chaidez MD Oct 17, 2016 10:57
[2016-10-17] MEDS: SODIUM CHLOR 0.9% 1000 ML INJ 1,000 ML IV SCH ×2 (11:30→20:42)
[2016-10-17 12:00] VITALS: BP 108/66; PULSE 95; RESP 12; TEMP 97.7; O2SAT 94
[2016-10-17 16:00] VITALS: BP 109/65; PULSE 99; RESP 16; TEMP 98.1; O2SAT 93
[2016-10-17] MEDS: cefTRIAXone INJ 1,000 MG in SODIUM CHLORIDE 0.9% INJ 100 ML IV SCH (17:57)
[2016-10-17 20:00] VITALS: BP 109/81; PULSE 87; RESP 18; TEMP 97.6; O2SAT 95
[2016-10-17 20:55] VITALS: BP 112/64
[2016-10-18] VITALS (7 sets, daily range): BP systolic 101–113; BP diastolic 63–70; PULSE 83–99; RESP 16–20; TEMP 97.5–98.1; O2SAT 93–99
[2016-10-18] MEDS: LORazepam 0.5 MG TAB PO PRN (00:32)
[2016-10-18] MEDS: SODIUM CHLOR 0.9% 1000 ML INJ 1,000 ML IV SCH ×4 (00:35→19:30)
[2016-10-18] MEDS: LACTATED RINGER'S 1000 ML IV SCH (06:27)
[2016-10-18] MEDS: oxyCODONE HCL 20 MG CONTROLLED RELEASE TAB PO SCH (09:00)
[2016-10-18] MEDS: DILTIAZEM-CD 300 MG CAP ER PO SCH (09:00)
[2016-10-18] MEDS: amLODIPine BESYLATE 5 MG TAB PO SCH (09:00)
[2016-10-18] MEDS: SODIUM CHLORIDE 0.9% FLUSH 5 ML FLUSH FLUSH SCH ×2 (09:00→21:00)
[2016-10-18] MEDS: AZITHROMYCIN 250 MG TAB PO SCH (09:30)
[2016-10-18] MEDS: CYANOCOBALAMIN 1000 MCG/ML VIAL IM SCH (09:30)
[2016-10-18] MEDS: LORATADINE 10 MG TAB PO SCH (09:30)
--- NOTE | 2016-10-18 10:18 | HHI.PR ---
Subjective Remarks F-U Thrombocytopenia/pneumonia/UTI 10/15/16-patient seen and examined, alert and oriented. Currently with low BP. Initially admitted for telemetry observation however patient was started on IV antibiotics on 10/14/16 secondary to finding of pneumonia and UTI. Nurse report, patient with swallow difficulty. 10/16/16-patient seen and examined; BP improving and patient denies any acute event overnight. Currently afebrile and no chest pain or shortness of breath. Tolerating by mouth without any complication or nausea and vomiting. 10/17/16-patient seen and examined, states he would like to be discharged from [place]. No acute event overnight and currently afebrile 10/18/16-patient seen and examined, resting and no acute event overnight. BP soft this morning Objective Vitals Vital Signs Date Time Temp Pulse Resp B/P Pulse Ox O2 Delivery O2 Flow Rate FiO2 10/18/16 08:32 97.5 83 18 106/63 95 10/18/16 04:00 97.5 89 18 106/63 93 10/18/16 00:00 98.1 96 18 103/63 93 10/17/16 20:55 112/64 Automatic Cuff 10/17/16 20:00 97.6 87 18 109/81 95 10/17/16 16:00 98.1 99 16 109/65 93 10/17/16 12:00 97.7 95 12 108/66 94 I/O 10/17/16 10/17/16 10/17/16 10/18/16 10/18/16 10/18/16 07:00 15:00 23:00 07:00 15:00 23:00 Intake Total 0 ml 840 ml 3716 ml 1251 ml Output Total 750 ml 1550 ml 650 ml 950 ml Balance -750 ml -710 ml 3066 ml 301 ml Intake Oral 0 ml 840 ml 240 ml 100 ml IV Total 3476 ml 1151 ml Output Urine Total 750 ml 1550 ml 650 ml 950 ml # Bowel Movements 1 2 1 1 Result Diagram: 10/17/16 0713 10/16/16 0713 Imaging Last Impressions Chest X-Ray 10/14/16 0000 Signed Impressions: Service Date/Time: Friday, October 14, 2016 14:12 - CONCLUSION: 1. Diffuse infiltrate throughout the left lung base concerning for a left basilar pneumonia. Raffy Wyatt MD Abdomen X-Ray 10/14/16 0000 Signed Impressions: Service Date/Time: Friday, October 14, 2016 07:25 - CONCLUSION: 1. Right sided nephroureteral stent with multiple right-sided calculi the largest measuring 13 mm. 2. Multiple left-sided renal calculi appear unchanged. Fahad Uribe MD Objective Remarks GENERAL: NAD SKIN: Warm and dry. HEAD: Normocephalic. EYES: No scleral icterus. No injection or drainage. NECK: Supple, trachea midline. No JVD or lymphadenopathy. CARDIOVASCULAR: Regular rate and rhythm without murmurs, gallops, or rubs. RESPIRATORY: Breath sounds equal bilaterally. No accessory muscle use. GASTROINTESTINAL: Abdomen soft, non-tender, nondistended. MUSCULOSKELETAL: No cyanosis, or edema. Splint applied to RLE; Left upper extremity hemiparesis. BACK: Nontender without obvious deformity. No CVA tenderness. A/P Problem List: (1) Thrombocytopenia ICD Code: D69.6 Status: Acute (2) Nephrolithiasis ICD Code: N20.0 Status: Acute (3) History of CVA (cerebrovascular accident) ICD Code: Z86.73 Status: Acute (4) HCAP (healthcare-associated pneumonia) ICD Code: J18.9 Status: Acute (5) UTI (urinary tract infection) ICD Code: N39.0 Status: Acute (6) Hypotension ICD Code: I95.9 Status: Acute (7) Hypokalemia ICD Code: E87.6 Status: Acute (8) Dysphagia ICD Code: R13.10 Status: Acute Assessment and Plan 61-year-old male with 1-Thrombocytopenia: Platelet dropping, Appreciate input from hematology. Continue treatment for pneumonia and hold Nuedexta. CBC pending this a.m. 2-History of renal calculi: Abdomen x-ray negative per review with finding of Right sided nephroureteral stent with multiple right-sided calculi the largest measuring 13 mm. 2. Multiple left-sided renal calculi appear unchanged. Patient to have ESWL control possible next week once thrombocytopenia improved 3-Hypertension: Secondary to hypotension, continue to hold Norvasc, Cardizem 4-Hypotension: Resolved with boluses NS on 10/15/16. Continue to hold oral antihypertensive medications 5-HCAP: Chest x-ray with finding of Diffuse infiltrate throughout the left lung base . Continue with IV antibiotics including Rocephin and azithromycin, monitor sputum, blood culture. Maintain oxygen saturation above 92%. DuoNeb when necessary. 6-UTI: Resolved as Urine culture negative 7-Acute renal failure: Renal indices improving, continue with IV fluid hydration 125cc/hr . Avoid all nephrotoxic drugs and monitor BUN and creatinine 8-Other chronic medical conditions: Continue outpatient medication 9-DVT prophylaxis: SCDs to right lower extremity only 10-Physical deconditioning: PT to treat and eval 11-Decubitus ulcer: Appreciate input from wound care nurse, continue with current treatment. Repositioning every 2 hour 12-Hypokalemia: Resolved 13-Dysphagia: Passed swallow eval, continue with current diet. Discharge Planning Discharge when medically stable Fahad Chaidez MD Oct 18, 2016 10:18
[2016-10-18 11:37] LABS: AUTOMATED NEUTROPHIL # 7.3 TH/MM3 (1.8-7.7); BASOPHIL % 0.3 % (0.0-2.0); EOSINOPHIL # 0.8 TH/MM3 (0-0.4); EOSINOPHIL % 8.4 % (0.0-4.0); HEMATOCRIT 29.1 % (39.0-51.0); LYMPH % 9.6 % (9.0-44.0); LYMPHOCYTE # 0.9 TH/MM3 (1.0-4.8); MEAN CORPUSCULAR HEMOGLOBIN 30.2 PG (27.0-34.0); MEAN CORPUSCULAR HGB CONC 33.5 % (32.0-36.0); MONO % 6.9 % (0.0-8.0); NEUT % 74.8 % (16.0-70.0); PLATELET COUNT 51 TH/MM3 (150-450); RED BLOOD COUNT 3.23 MIL/MM3 (4.50-5.90); RED CELL DISTRIBUTION WIDTH 14.9 % (11.6-17.2)
[2016-10-18 11:39] LABS: HEMO FLAGS AUTO DIFF; WHITE BLOOD COUNT 9.7 TH/MM3 (4.0-11.0)
[2016-10-18 12:03] LABS: PLATELET ESTIMATE SMEAR LOW (NORMAL); PLATELET MORPHOLOGY NORMAL (NORMAL); SCAN/DIFF AUTO DIFF CONFIRMED
[2016-10-18] MEDS: cefTRIAXone INJ 1,000 MG in SODIUM CHLORIDE 0.9% INJ 100 ML IV SCH (17:54)
[2016-10-18] MEDS: MAGNESIUM SULFATE 1 GM PREMIX 100 ML IV SCH ×2 (21:45→23:12)
[2016-10-19] VITALS (8 sets, daily range): BP systolic 101–142; BP diastolic 61–77; PULSE 80–93; RESP 16–18; TEMP 97.3–98.4; O2SAT 92–95
[2016-10-19] MEDS: oxyCODONE HCL 20 MG CONTROLLED RELEASE TAB PO SCH ×3 (00:10→21:00)
[2016-10-19] MEDS: SODIUM CHLOR 0.9% 1000 ML INJ 1,000 ML IV SCH ×3 (01:40→11:30)
[2016-10-19] MEDS: LACTATED RINGER'S 1000 ML IV SCH (07:00)
[2016-10-19] MEDS: SODIUM CHLORIDE 0.9% FLUSH 5 ML FLUSH FLUSH SCH ×2 (09:00→20:13)
[2016-10-19] MEDS: DILTIAZEM-CD 300 MG CAP ER PO SCH (09:08)
[2016-10-19] MEDS: LORATADINE 10 MG TAB PO SCH (09:08)
[2016-10-19] MEDS: amLODIPine BESYLATE 5 MG TAB PO SCH (09:08)
[2016-10-19] MEDS: AZITHROMYCIN 250 MG TAB PO SCH (09:08)
[2016-10-19] MEDS: CYANOCOBALAMIN 1000 MCG/ML VIAL IM SCH (09:09)
--- NOTE | 2016-10-19 11:23 | HHI.PR ---
Subjective Remarks The patient was resting comfortably in bed. He had no acute complaints. He is tolerating a diet. He said he has been sleeping well. Discussed with nursing. Objective Vitals Vital Signs Date Time Temp Pulse Resp B/P Pulse Ox O2 Delivery O2 Flow Rate FiO2 10/19/16 08:07 97.3 93 16 123/73 95 10/19/16 05:02 98.4 92 16 128/69 94 10/19/16 00:00 97.6 88 18 142/77 95 10/18/16 20:49 93 21 10/18/16 20:00 98.0 86 16 110/68 99 10/18/16 16:24 98.0 99 20 101/64 93 10/18/16 12:12 97.9 98 18 113/70 95 I/O 10/18/16 10/18/16 10/18/16 10/19/16 10/19/16 10/19/16 07:00 15:00 23:00 07:00 15:00 23:00 Intake Total 1251 ml 360 ml 2956 ml 1051 ml Output Total 950 ml 1450 ml 1150 ml Balance 301 ml -1090 ml 1806 ml 1051 ml Intake Oral 100 ml 360 ml IV Total 1151 ml 2956 ml 1051 ml Output Urine Total 950 ml 1450 ml 1150 ml # Bowel Movements 1 0 2 Result Diagram: 10/18/16 1030 10/16/16 0713 Imaging Last Impressions Chest X-Ray 10/14/16 0000 Signed Impressions: Service Date/Time: Friday, October 14, 2016 14:12 - CONCLUSION: 1. Diffuse infiltrate throughout the left lung base concerning for a left basilar pneumonia. Raffy Wyatt MD Abdomen X-Ray 10/14/16 0000 Signed Impressions: Service Date/Time: Friday, October 14, 2016 07:25 - CONCLUSION: 1. Right sided nephroureteral stent with multiple right-sided calculi the largest measuring 13 mm. 2. Multiple left-sided renal calculi appear unchanged. Fahad Uribe MD Objective Remarks GENERAL: NAD SKIN: Warm and dry. HEAD: Normocephalic. EYES: No scleral icterus. No injection or drainage. NECK: Supple, trachea midline. No JVD or lymphadenopathy. CARDIOVASCULAR: Regular rate and rhythm without murmurs, gallops, or rubs. RESPIRATORY: Breath sounds equal bilaterally. No accessory muscle use. GASTROINTESTINAL: Abdomen soft, non-tender, nondistended. MUSCULOSKELETAL: No cyanosis, or edema. Splint applied to RLE; Left upper extremity hemiparesis. BACK: Nontender without obvious deformity. No CVA tenderness. Medications and IVs Current Medications Medications (Trade) Dose Ordered Sig/Janelle Route Start Time Stop Time Status Last Admin (Lr 1000 ml Inj) 1,000 ml @ 30 mls/hr Q24H IV 10/14/16 07:00 10/14/16 07:45 (NS Flush) 2 ml UNSCH PRN FLUSH 10/14/16 11:45 (NS Flush) 2 ml BID FLUSH 10/14/16 21:00 10/19/16 09:00 (Tylenol) 650 mg Q4H PRN PO 10/14/16 11:45 (Zofran Inj) 4 mg Q6H PRN IVP 10/14/16 11:45 (Milk Of Magnesia Liq) 30 ml Q12H PRN PO 10/14/16 11:45 (Tylenol) 650 mg Q6H PRN PO 10/14/16 11:45 (Narcan Inj) 0.4 mg UNSCH PRN IV 10/14/16 11:45 (Norvasc) 5 mg DAILY PO 10/15/16 09:00 10/19/16 09:08 (Cardizem Cd) 300 mg DAILY PO 10/15/16 09:00 10/19/16 09:08 (Claritin) 10 mg DAILY PO 10/15/16 09:00 10/19/16 09:08 (Ativan) 0.5 mg Q8H PRN PO 10/14/16 11:45 10/18/16 00:32 Oxycodone HCl 20 mg 20 mg Q12HR PO 10/14/16 21:00 10/19/16 09:08 (Rocephin Inj/NS Inj) 100 ml @ 200 mls/hr Q24H IV 10/14/16 18:00 10/18/16 17:54 (Zithromax) 500 mg DAILY PO 10/15/16 09:00 10/19/16 09:08 ([place] 5-325 Mg) 1 tab Q4H PRN PO 10/14/16 16:45 10/15/16 10:30 Docusate Sodium 100 mg 100 mg Q12H PRN PO 10/14/16 16:45 (NS 1000 ml Inj) 1,000 ml @ 125 mls/hr Q8H IV 10/15/16 11:30 10/19/16 11:30 (Vitamin B12 Inj) 1,000 mcg DAILY IM 10/15/16 17:15 10/19/16 09:09 A/P Problem List: (1) Thrombocytopenia ICD Code: D69.6 Status: Acute (2) Nephrolithiasis ICD Code: N20.0 Status: Acute (3) History of CVA (cerebrovascular accident) ICD Code: Z86.73 Status: Acute (4) HCAP (healthcare-associated pneumonia) ICD Code: J18.9 Status: Acute (5) UTI (urinary tract infection) ICD Code: N39.0 Status: Acute (6) Hypotension ICD Code: I95.9 Status: Acute (7) Hypokalemia ICD Code: E87.6 Status: Acute (8) Dysphagia ICD Code: R13.10 Status: Acute Assessment and Plan 1-Thrombocytopenia: Platelet decreasing, Appreciate input from hematology. Continue treatment for pneumonia and hold Nuedexta. CBC in a.m. 2-History of renal calculi: Abdomen x-ray negative per review with finding of Right sided nephroureteral stent with multiple right-sided calculi the largest measuring 13 mm. 2. Multiple left-sided renal calculi appear unchanged. Patient to have ESWL control possible next week once thrombocytopenia improved. Hematology following. 3-Hypertension: Has had hypotension. Off. Home medications resumed. 4-Hypotension: Resolved with boluses NS on 10/15/16. 5-HCAP: Chest x-ray with finding of Diffuse infiltrate throughout the left lung base . Continue with IV antibiotics including Rocephin and azithromycin, monitor sputum, blood culture. Maintain oxygen saturation above 92%. DuoNeb when necessary. 6-UTI: Resolved as Urine culture negative 7-Acute renal failure: Renal indices improving, continue with IV fluid hydration 125cc/hr . Avoid all nephrotoxic drugs and monitor BUN and creatinine 8-Other chronic medical conditions: Continue outpatient medication 9-DVT prophylaxis: SCDs to right lower extremity only 10-Physical deconditioning: PT to treat and eval 11-Decubitus ulcer: Appreciate input from wound care nurse, continue with current treatment. Repositioning every 2 hour. 12-Hypokalemia: Resolved 13-Dysphagia: Passed swallow eval, continue with current diet. Discharge Planning Awaiting clinical improvement. Scot Soares DO Oct 19, 2016 11:23
--- NOTE | 2016-10-19 11:27 | PD.ONC.PN ---
Subjective Subjective Remarks Afebrile overnight. Patient resting comfortably without complaint. No reported overnight events. Objective Data Date Time Temp Pulse Resp B/P Pulse Ox O2 Delivery O2 Flow Rate FiO2 10/19/16 08:07 97.3 93 16 123/73 95 10/19/16 05:02 98.4 92 16 128/69 94 10/19/16 00:00 97.6 88 18 142/77 95 10/18/16 20:49 93 21 10/18/16 20:00 98.0 86 16 110/68 99 10/18/16 16:24 98.0 99 20 101/64 93 10/18/16 12:12 97.9 98 18 113/70 95 10/19/16 10/19/16 10/19/16 07:00 15:00 23:00 Intake Total 1051 ml Balance 1051 ml Result Diagram: 10/18/16 1030 10/16/16 0713 Administered Medications Medications (Trade) Dose Ordered Sig/Janelle Route PRN Reason Start Time Stop Time Status Last Admin Dose Admin Lactated Ringer's (Lr 1000 ml Inj) 1,000 ml @ 30 mls/hr Q24H IV 10/14/16 07:00 10/14/16 07:45 IV Flush (NS Flush) 2 ml BID FLUSH 10/14/16 21:00 10/19/16 09:00 Amlodipine Besylate (Norvasc) 5 mg DAILY PO 10/15/16 09:00 10/19/16 09:08 Diltiazem HCl (Cardizem Cd) 300 mg DAILY PO 10/15/16 09:00 10/19/16 09:08 Loratadine (Claritin) 10 mg DAILY PO 10/15/16 09:00 10/19/16 09:08 Lorazepam (Ativan) 0.5 mg Q8H PRN PO ANXIETY 10/14/16 11:45 10/18/16 00:32 Oxycodone HCl 20 mg 20 mg Q12HR PO 10/14/16 21:00 10/19/16 09:08 Ceftriaxone Sodium/Sodium Chloride (Rocephin Inj/NS Inj) 100 ml @ 200 mls/hr Q24H IV 10/14/16 18:00 10/18/16 17:54 Azithromycin (Zithromax) 500 mg DAILY PO 10/15/16 09:00 10/19/16 09:08 Acetaminophen/ Hydrocodone Bitart 1 tab 1 tab Q4H PRN PO BREAKTHROUGH PAIN 10/14/16 16:45 10/15/16 10:30 Sodium Chloride (NS 1000 ml Inj) 1,000 ml @ 125 mls/hr Q8H IV 10/15/16 11:30 10/19/16 01:40 Cyanocobalamin (Vitamin B12 Inj) 1,000 mcg DAILY IM 10/15/16 17:15 10/19/16 09:09 Objective Remarks GENERAL: Elderly male, lying in bed, in nad. SKIN: Warm and dry. HEAD: Normocephalic. EYES: No injection or drainage. NECK: Supple, trachea midline. CARDIOVASCULAR: +S1/S2 RESPIRATORY: anterior lozano clear. GASTROINTESTINAL: Abdomen soft, non-tender, nondistended. EXTREMITIES: No cyanosis. left leg shortened. NEUROLOGICAL: awake and alert. able to move extremities. Assessment/Plan Problem List: (1) Thrombocytopenia Status: Acute Plan: --likely DIC due to recent pneumonia +hemodilution --may also have consumptive process from the nonhealing hip fracture and decubitus ulcer and wound. no bleeding noted. (2) Pneumonia Status: Acute Plan: --was diagnosed with pneumonia [facility] in the [facility] where he was [facility] with Leva[facility]. --repeat chest x-ray showed diffuse infiltrates throughout the left lung base. --started back on Rocephin and Zithromax inpatient (3) Normocytic anemia Status: Acute Plan: --Mild anemia, likely due to underlying infection. --B12 low normal --will start replacement to assist with hematopoiesis --folate WNL --iron studies more consistent with anemia of chronic disease Assessment 61y/o male with thrombocytopenia. --initially admitted for outpatient lithotripsy and incidentally found to have platelet count of 80K. --multiple decubitus ulcers h/o Stroke with left-sided weakness. Cerebral aneurysm status post coiling. Bilateral renal calculi and double J stent placement. Hypertension. Left hip fracture, non-surgical candidate Plan 1. await CBC today 2. continue B12 replacement 3. check coags/fibrinogen Attending Statement The exam, history, and the medical decision-making described in the above note were completed with the assistance of the mid-level provider. I reviewed and agree with the findings presented. I attest that I had a [id number] encounter with the patient on the same day, and personally performed and documented my assessment and findings in the medical record. No bleeding noted. Platelet trended up slightly. Likely has consumptive process due to infection. Also has B12 deficiency. Continue B12 supplement. Monitor CBC. Raven Dickinson Oct 19, 2016 11:27 Jeff Jade MD Oct 19, 2016 15:36
[2016-10-19 12:07] LABS: PROTHROMBIN TIME - PATIENT 11.6 SEC (9.8-11.6)
[2016-10-19 13:13] LABS: MEAN CELL VOLUME 90.9 FL (80.0-100.0); MEAN CORPUSCULAR HEMOGLOBIN 29.9 PG (27.0-34.0); MEAN CORPUSCULAR HGB CONC 32.9 % (32.0-36.0); PLATELET COUNT 69 TH/MM3 (150-450); RED BLOOD COUNT 3.63 MIL/MM3 (4.50-5.90); RED CELL DISTRIBUTION WIDTH 14.8 % (11.6-17.2); WHITE BLOOD COUNT 8.7 TH/MM3 (4.0-11.0)
[2016-10-19 13:15] LABS: REVIEW FLAG FINAL
[2016-10-19 13:50] LABS: BICARBONATE 27.7 MEQ/L (21.0-32.0)
[2016-10-19 13:56] LABS: POTASSIUM 2.6 MEQ/L (3.5-5.1)
[2016-10-19 14:26] LABS: CALCIUM-PROTEIN CORRECTED 6.9 MG/DL (8.5-10.1)
[2016-10-19] MEDS ORDERED: POTASSIUM CHLORIDE 25 MEQ EFFERVESCENT TAB PO ONE (16:00)
[2016-10-19] MEDS ORDERED: CALCIUM GLUCONATE INJ 2 GM in SODIUM CHLORIDE 0.9% INJ 100 ML IV ONE (16:00)
[2016-10-19] MEDS: cefTRIAXone INJ 1,000 MG in SODIUM CHLORIDE 0.9% INJ 100 ML IV SCH (17:21)
[2016-10-19] MEDS: D5-1/2 NS + KCL 20 MEQ INJ 1,000 ML IV SCH (17:21)
[2016-10-19] MEDS: ACETAMINOPHEN/HYDROcodone 325 MG/5 MG TAB PO PRN (17:27)
[2016-10-19] MEDS: MAGNESIUM SULFATE 1 GM PREMIX 100 ML IV SCH ×3 (18:00→20:13)
[2016-10-19 23:40] LABS: BICARBONATE 26.5 MEQ/L (21.0-32.0); MAGNESIUM 1.5 MG/DL (1.5-2.5)
[2016-10-19 23:50] LABS: POTASSIUM 2.9 MEQ/L (3.5-5.1)
[2016-10-20] MEDS ORDERED: CALCIUM GLUCONATE INJ 1 GM in SODIUM CHLORIDE 0.9% INJ 90 ML IV ONE (00:30)
[2016-10-20] MEDS: POTASSIUM CHLOR 20 MEQ PREMIX 100 ML IV SCH ×2 (00:39→03:45)
[2016-10-20] MEDS: D5-1/2 NS + KCL 20 MEQ INJ 1,000 ML IV SCH (02:00)
[2016-10-20] MEDS: CALCIUM GLUCONATE INJ 1 GM in SODIUM CHLORIDE 0.9% INJ 90 ML IV SCH (02:25)
[2016-10-20] MEDS: LACTATED RINGER'S 1000 ML IV SCH (07:00)
[2016-10-20 08:07] VITALS: BP 105/66; PULSE 89; RESP 18; TEMP 97.8; O2SAT 95
[2016-10-20] MEDS: amLODIPine BESYLATE 5 MG TAB PO SCH (08:18)
[2016-10-20] MEDS: AZITHROMYCIN 250 MG TAB PO SCH (08:18)
[2016-10-20] MEDS: oxyCODONE HCL 20 MG CONTROLLED RELEASE TAB PO SCH ×2 (08:19→20:55)
[2016-10-20] MEDS: DILTIAZEM-CD 300 MG CAP ER PO SCH (08:20)
[2016-10-20] MEDS: CYANOCOBALAMIN 1000 MCG/ML VIAL IM SCH (08:20)
[2016-10-20] MEDS: LORATADINE 10 MG TAB PO SCH (08:20)
[2016-10-20] MEDS: SODIUM CHLORIDE 0.9% FLUSH 5 ML FLUSH FLUSH SCH ×2 (08:22→20:55)
[2016-10-20 09:40] LABS: HEMATOCRIT 33.7 % (39.0-51.0); MEAN CELL VOLUME 89.4 FL (80.0-100.0); MEAN CORPUSCULAR HEMOGLOBIN 29.8 PG (27.0-34.0); MEAN CORPUSCULAR HGB CONC 33.4 % (32.0-36.0); PLATELET COUNT 58 TH/MM3 (150-450); RED BLOOD COUNT 3.77 MIL/MM3 (4.50-5.90); RED CELL DISTRIBUTION WIDTH 14.6 % (11.6-17.2); WHITE BLOOD COUNT 9.6 TH/MM3 (4.0-11.0)
[2016-10-20 09:41] LABS: HEMO FLAGS AUTO DIFF
[2016-10-20 09:45] LABS: BANDS 2 % (0-6); BASOPHILS 1 % (0-2); EOSINOPHILS 9 % (0-4); MYELOCYTES 1 % (0-0); NEUTROPHIL # MANUAL DIFF 6.6 TH/MM3 (1.8-7.7); POLYS (SEG NEUTROPHILS) 66 % (16-70); WBC DIFF SAMPLE 100
[2016-10-20 09:46] LABS: PLATELET ESTIMATE SMEAR LOW (NORMAL); PLATELET MORPHOLOGY NORMAL (NORMAL); SCAN/DIFF FINAL DIFF MANUAL
[2016-10-20 09:51] LABS: BICARBONATE 19.7 MEQ/L (21.0-32.0); MAGNESIUM 1.6 MG/DL (1.5-2.5); POTASSIUM 4.4 MEQ/L (3.5-5.1)
--- NOTE | 2016-10-20 09:59 | HHI.PR ---
Subjective Remarks Patient is in bed. Says she feels tired. Not eating much says she has decreased appetite. No n/v/d/c. Cough nonproductive, some sob associated. No fever or chills. Objective Vitals Vital Signs Date Time Temp Pulse Resp B/P Pulse Ox O2 Delivery O2 Flow Rate FiO2 10/20/16 08:07 97.8 89 18 105/66 95 10/19/16 23:55 97.7 80 16 102/64 94 10/19/16 20:27 97.9 82 16 101/61 92 10/19/16 20:16 95 21 10/19/16 16:08 97.8 93 16 110/68 95 10/19/16 12:09 98.0 92 16 107/69 93 I/O 10/19/16 10/19/16 10/19/16 10/20/16 10/20/16 10/20/16 07:00 15:00 23:00 07:00 15:00 23:00 Intake Total 1051 ml 120 ml 120 ml 672 ml Output Total 1100 ml 150 ml 550 ml Balance 1051 ml -980 ml -30 ml 122 ml Intake Oral 120 ml 120 ml 200 ml IV Total 1051 ml 472 ml Output Urine Total 1100 ml 150 ml 550 ml # Bowel Movements 1 1 0 Result Diagram: 10/20/16 0903 10/20/16 0903 Imaging Last Impressions Chest X-Ray 10/14/16 0000 Signed Impressions: Service Date/Time: Friday, October 14, 2016 14:12 - CONCLUSION: 1. Diffuse infiltrate throughout the left lung base concerning for a left basilar pneumonia. Raffy Wyatt MD Abdomen X-Ray 10/14/16 0000 Signed Impressions: Service Date/Time: Friday, October 14, 2016 07:25 - CONCLUSION: 1. Right sided nephroureteral stent with multiple right-sided calculi the largest measuring 13 mm. 2. Multiple left-sided renal calculi appear unchanged. Fahad Uribe MD Objective Remarks GENERAL: Patient is a 61 yo male, appearing older than the stated age, skinny, cachectic appearing, however not in apparent acute distress. SKIN: Pale, Warm and dry. HEAD: Normocephalic. EYES: No scleral icterus. No injection or drainage. NECK: Supple, trachea midline. No JVD or lymphadenopathy. CARDIOVASCULAR: Regular rate and rhythm without murmurs, gallops, or rubs. RESPIRATORY: Breath sounds equal bilaterally. No accessory muscle use. + nonproductive Cough. GASTROINTESTINAL: Abdomen soft, non-tender, nondistended. MUSCULOSKELETAL: No cyanosis, or edema. Splint applied to RLE. Left upper extremity hemiparesis. BACK: Nontender without obvious deformity. No CVA tenderness. A/P Problem List: (1) Thrombocytopenia ICD Code: D69.6 Status: Acute (2) Nephrolithiasis ICD Code: N20.0 Status: Acute (3) History of CVA (cerebrovascular accident) ICD Code: Z86.73 Status: Acute (4) HCAP (healthcare-associated pneumonia) ICD Code: J18.9 Status: Acute (5) UTI (urinary tract infection) ICD Code: N39.0 Status: Acute (6) Hypotension ICD Code: I95.9 Status: Acute (7) Hypokalemia ICD Code: E87.6 Status: Acute (8) Dysphagia ICD Code: R13.10 Status: Acute Assessment and Plan Thrombocytopenia: Multifactorial, consumption/ infection/ healing fx, r/o DIC. Appreciate hem/onc input. Platelet decreasing, Appreciate input from hematology. Continue treatment for pneumonia and hold Nuedexta. CBC in a.m. History of renal calculi: Abdomen x-ray negative per review with finding of Right sided nephroureteral stent with multiple right-sided calculi the largest measuring 13 mm. 2. Multiple left-sided renal calculi appear unchanged. Patient to have ESWL control possible next week once thrombocytopenia improved. Hematology following. Hypertension: Has had hypotension. Off. Home medications resumed. Hypotension: Resolved with boluses NS on 10/15/16. HCAP: Chest x-ray with finding of Diffuse infiltrate throughout the left lung base . Continue with IV antibiotics including Rocephin and azithromycin, monitor sputum, blood culture. Maintain oxygen saturation above 92%. DuoNeb when necessary. UTI: Resolved as Urine culture negative Acute renal failure: Renal indices improving, continue with IV fluid hydration 125cc/hr . Avoid all nephrotoxic drugs and monitor BUN and creatinine Physical deconditioning: PT to treat and eval Decubitus ulcer: Appreciate input from wound care nurse, continue with current treatment. Repositioning every 2 hour. Hypokalemia: Resolved Dysphagia: Passed swallow eval, continue with current diet. Other chronic medical conditions: Continue outpatient medication DVT prophylaxis: SCDs to right lower extremity only Discharge Planning Likely DC back to SNF when improved and cleared by consultants. Grace Farrar MD Oct 20, 2016 09:59
--- NOTE | 2016-10-20 10:05 | PD.ONC.PN ---
Subjective Subjective Remarks Afebrile overnight. Patient resting in room, getting blood drawn. Objective Data Date Time Temp Pulse Resp B/P Pulse Ox O2 Delivery O2 Flow Rate FiO2 10/20/16 08:07 97.8 89 18 105/66 95 10/19/16 23:55 97.7 80 16 102/64 94 10/19/16 20:27 97.9 82 16 101/61 92 10/19/16 20:16 95 21 10/19/16 16:08 97.8 93 16 110/68 95 10/19/16 12:09 98.0 92 16 107/69 93 10/20/16 10/20/16 10/20/16 07:00 15:00 23:00 Intake Total 672 ml Output Total 550 ml Balance 122 ml Result Diagram: 10/20/1690210/20/16902 Laboratory Results Laboratory Tests Test 10/19/16 10/19/16 10/19/16 10/20/16 11:37 12:40 22:48 09:03 Prothrombin Time 11.6 SEC Prothromb Time International 1.0 RATIO Ratio Activated Partial 32.0 SEC Thromboplast Time Fibrinogen 347 mg/dL White Blood Count 8.7 TH/MM3 9.6 TH/MM3 Red Blood Count 3.63 MIL/MM3 3.77 MIL/MM3 Hemoglobin 10.8 GM/DL 11.3 GM/DL Hematocrit 33.0 % 33.7 % Mean Corpuscular Volume 90.9 FL 89.4 FL Mean Corpuscular Hemoglobin 29.9 PG 29.8 PG Mean Corpuscular Hemoglobin 32.9 % 33.4 % Concent Red Cell Distribution Width 14.8 % 14.6 % Platelet Count 69 TH/MM3 58 TH/MM3 Mean Platelet Volume 9.8 FL 9.3 FL Sodium Level 145 MEQ/L 144 MEQ/L 141 MEQ/L Potassium Level 2.6 MEQ/L 2.9 MEQ/L 4.4 MEQ/L Chloride Level 107 MEQ/L 108 MEQ/L 109 MEQ/L Carbon Dioxide Level 27.7 MEQ/L 26.5 MEQ/L 19.7 MEQ/L Anion Gap 10 MEQ/L 10 MEQ/L 12 MEQ/L Blood Urea Nitrogen 9 MG/DL 9 MG/DL 9 MG/DL Creatinine 1.05 MG/DL 1.07 MG/DL 1.03 MG/DL Estimat Glomerular Filtration 72 ML/MIN 70 ML/MIN 73 ML/MIN Rate Random Glucose 68 MG/DL 60 MG/DL 78 MG/DL Calcium Level 6.3 MG/DL 6.5 MG/DL 7.0 MG/DL Protein Corrected Calcium 6.9 MG/DL 7.0 MG/DL Phosphorus Level 2.7 MG/DL Magnesium Level 1.0 MG/DL 1.5 MG/DL 1.6 MG/DL Total Protein 5.9 GM/DL 6.1 GM/DL Neutrophils (%) (Auto) % Lymphocytes (%) (Auto) % Monocytes (%) (Auto) % Eosinophils (%) (Auto) % Basophils (%) (Auto) % Neutrophils # (Auto) TH/MM3 Lymphocytes # (Auto) TH/MM3 Monocytes # (Auto) TH/MM3 Eosinophils # (Auto) TH/MM3 Basophils # (Auto) TH/MM3 CBC Comment AUTO DIFF Differential Total Cells 100 Counted Neutrophils % (Manual) 66 % Band Neutrophils % 2 % Lymphocytes % 15 % Monocytes % 6 % Eosinophils % 9 % Basophils % 1 % Neutrophils # (Manual) 6.6 TH/MM3 Myelocytes 1 % Differential Comment FINAL DIFF MANUAL Platelet Estimate LOW Platelet Morphology Comment NORMAL Hematology Comments Administered Medications Medications (Trade) Dose Ordered Sig/Janelle Route PRN Reason Start Time Stop Time Status Last Admin Dose Admin Lactated Ringer's (Lr 1000 ml Inj) 1,000 ml @ 30 mls/hr Q24H IV 10/14/16 07:00 10/14/16 07:45 IV Flush (NS Flush) 2 ml BID FLUSH 10/14/16 21:00 10/20/16 08:22 Amlodipine Besylate (Norvasc) 5 mg DAILY PO 10/15/16 09:00 10/19/16 09:08 Diltiazem HCl (Cardizem Cd) 300 mg DAILY PO 10/15/16 09:00 10/19/16 09:08 Loratadine (Claritin) 10 mg DAILY PO 10/15/16 09:00 10/20/16 08:20 Lorazepam (Ativan) 0.5 mg Q8H PRN PO ANXIETY 10/14/16 11:45 10/18/16 00:32 Oxycodone HCl 20 mg 20 mg Q12HR PO 10/14/16 21:00 10/19/16 09:08 Ceftriaxone Sodium/Sodium Chloride (Rocephin Inj/NS Inj) 100 ml @ 200 mls/hr Q24H IV 10/14/16 18:00 10/19/16 17:21 Azithromycin (Zithromax) 500 mg DAILY PO 10/15/16 09:00 10/20/16 08:18 Acetaminophen/ Hydrocodone Bitart ([place] 5-325 Mg) 1 tab Q4H PRN PO BREAKTHROUGH PAIN 10/14/16 16:45 10/19/16 17:27 Cyanocobalamin 1000 mcg 1,000 mcg DAILY IM 10/15/16 17:15 10/20/16 08:20 Potassium Chloride/Dextrose/ Sod Cl 1,000 ml @ 100 mls/hr Q10H IV 10/19/16 16:00 10/20/16 11:59 10/19/16 17:21 Calcium Gluconate/ Sodium Chloride (Calcium Gluconate Inj/NS Inj) 100 ml @ 100 mls/hr ONCE IV 10/20/16 00:30 10/21/16 01:29 10/20/16 02:25 Objective Remarks GENERAL: Elderly male, lying supine in bed. SKIN: Warm and dry. HEAD: Normocephalic. EYES: No injection or drainage. NECK: Supple, trachea midline. CARDIOVASCULAR: +S1/S2 RESPIRATORY: anterior lozano clear. GASTROINTESTINAL: Abdomen soft, non-tender, nondistended. EXTREMITIES: No cyanosis. left leg shortened. NEUROLOGICAL: awake, able to move extremities. normal speech. Assessment/Plan Problem List: (1) Thrombocytopenia Status: Acute Plan: --likely DIC due to recent pneumonia +hemodilution --may also have consumptive process from the nonhealing hip fracture and decubitus ulcer and wound. no bleeding noted. (2) Pneumonia Status: Acute Plan: --was diagnosed with pneumonia while in the longterm where he was treated with Levaquin. --repeat chest x-ray showed diffuse infiltrates throughout the left lung base. --started back on Rocephin and Zithromax inpatient (3) Normocytic anemia Status: Acute Plan: --Mild anemia, likely due to underlying infection. --B12 low normal --will start replacement to assist with hematopoiesis --folate WNL --iron studies more consistent with anemia of chronic disease Assessment 61y/o male with thrombocytopenia. --initially admitted for outpatient lithotripsy and incidentally found to have platelet count of 80K. --multiple decubitus ulcers h/o Stroke with left-sided weakness. Cerebral aneurysm status post coiling. Bilateral renal calculi and double J stent placement. Hypertension. Left hip fracture, non-surgical candidate Plan 1. monitor CBC 2. supportive care 3. continue B12 replacement. Attending Statement The exam, history, and the medical decision-making described in the above note were completed with the assistance of the mid-level provider. I reviewed and agree with the findings presented. I attest that I had a [id number] encounter with the patient on the same day, and personally performed and documented my assessment and findings in the medical record. He is feeling better. No bleeding noted. Hgb improving. Platelet stable. Continue B12 and monitor CBC. Raven Dickinson Oct 20, 2016 10:05 Jeff Jade MD Oct 20, 2016 14:45
[2016-10-20 10:11] LABS: CALCIUM-PROTEIN CORRECTED 7.7 MG/DL (8.5-10.1)
[2016-10-20 10:25] VITALS: O2SAT 94
[2016-10-20 10:54] LABS: INTERNATIONAL NORMALIZED RATIO 1.1 RATIO; PROTHROMBIN TIME - PATIENT 11.7 SEC (9.8-11.6)
[2016-10-20 12:07] VITALS: BP 108/66; PULSE 88; RESP 18; TEMP 97.6; O2SAT 95
[2016-10-20 16:07] VITALS: BP 110/68; PULSE 88; RESP 18; TEMP 97.8; O2SAT 95
[2016-10-20] MEDS: cefTRIAXone INJ 1,000 MG in SODIUM CHLORIDE 0.9% INJ 100 ML IV SCH (16:54)
[2016-10-20 20:00] VITALS: BP 102/70; PULSE 97; RESP 20; TEMP 98.7; O2SAT 95
[2016-10-20 20:07] VITALS: O2SAT 96
[2016-10-21] VITALS: BP 112/72; PULSE 89; RESP 20; TEMP 98.8; O2SAT 96
[2016-10-21] MEDS: CALCIUM GLUCONATE INJ 1 GM in SODIUM CHLORIDE 0.9% INJ 90 ML IV SCH (00:49)
[2016-10-21 04:00] VITALS: BP 130/78; PULSE 91; RESP 20; TEMP 98.1; O2SAT 91
[2016-10-21] MEDS: LACTATED RINGER'S 1000 ML IV SCH (07:00)
[2016-10-21 08:00] VITALS: BP 127/68; PULSE 105; RESP 18; TEMP 97.4; O2SAT 92
[2016-10-21 08:48] LABS: AUTOMATED NEUTROPHIL # 5.4 TH/MM3 (1.8-7.7); BASOPHIL % 0.4 % (0.0-2.0); EOSINOPHIL # 0.7 TH/MM3 (0-0.4); EOSINOPHIL % 9.1 % (0.0-4.0); HEMATOCRIT 32.6 % (39.0-51.0); LYMPH % 9.9 % (9.0-44.0); LYMPHOCYTE # 0.8 TH/MM3 (1.0-4.8); MEAN CELL VOLUME 88.4 FL (80.0-100.0); MEAN CORPUSCULAR HEMOGLOBIN 29.8 PG (27.0-34.0); MEAN CORPUSCULAR HGB CONC 33.7 % (32.0-36.0); MONO % 9.4 % (0.0-8.0); NEUT % 71.2 % (16.0-70.0); PLATELET COUNT 94 TH/MM3 (150-450); RED BLOOD COUNT 3.68 MIL/MM3 (4.50-5.90); RED CELL DISTRIBUTION WIDTH 14.4 % (11.6-17.2); WHITE BLOOD COUNT 7.6 TH/MM3 (4.0-11.0)
[2016-10-21 08:53] LABS: HEMO FLAGS AUTO DIFF
[2016-10-21 09:17] LABS: BICARBONATE 23.6 MEQ/L (21.0-32.0); POTASSIUM 3.7 MEQ/L (3.5-5.1)
[2016-10-21 09:19] LABS: PLATELET ESTIMATE SMEAR LOW (NORMAL); PLATELET MORPHOLOGY NORMAL (NORMAL); SCAN/DIFF AUTO DIFF CONFIRMED
[2016-10-21 09:38] LABS: CALCIUM-PROTEIN CORRECTED 7.7 MG/DL (8.5-10.1)
[2016-10-21] MEDS: AZITHROMYCIN 250 MG TAB PO SCH (09:51)
[2016-10-21] MEDS: amLODIPine BESYLATE 5 MG TAB PO SCH (09:51)
[2016-10-21] MEDS: DILTIAZEM-CD 300 MG CAP ER PO SCH (09:51)
[2016-10-21] MEDS: LORATADINE 10 MG TAB PO SCH (09:51)
[2016-10-21] MEDS: SODIUM CHLORIDE 0.9% FLUSH 5 ML FLUSH FLUSH SCH (09:52)
[2016-10-21] MEDS: oxyCODONE HCL 20 MG CONTROLLED RELEASE TAB PO SCH (09:52)
[2016-10-21] MEDS: CYANOCOBALAMIN 1000 MCG/ML VIAL IM SCH (09:55)
[2016-10-21] MEDS ORDERED: CALCIUM CARBONATE 500 MG CHEWABLE TAB CHEW SCH (11:30)
[2016-10-21 12:00] VITALS: BP 113/59; PULSE 106; RESP 16; TEMP 97.9; O2SAT 97
[2016-10-21] MEDS ORDERED: CALCIUM GLUCONATE INJ 1 GM in SODIUM CHLORIDE 0.9% INJ 100 ML IV ONE (13:00)
[2016-10-21] MEDS ORDERED: MEGESTROL ACETATE SUSP 400 MG/10 ML CUP PO ONE (13:30)
[2016-10-21] MEDS ORDERED: LEVA750T PO (13:32)
[2016-10-21] MEDS ORDERED: CYAN100015 BUCCAL (13:32)
[2016-10-21] MEDS ORDERED: CEFT500T3 PO (13:32)
[2016-10-21] MEDS ORDERED: LORA-373 PO (13:32)
[2016-10-21] MEDS ORDERED: MEGE40SU PO (13:34)
[2016-10-21] MEDS ORDERED: OXYC20TA17 PO (13:34)
[2016-10-21] MEDS ORDERED: PERC10TA27 PO (13:34)
--- NOTE | 2016-10-21 13:34 | HHI.PR ---
Subjective Remarks Has decreased appetite. Can't eat much . Will add megace. No n/v/d/c. Will ask dietary on consult. Patient has less cough. No fever or chills. Objective Vitals Vital Signs Date Time Temp Pulse Resp B/P Pulse Ox O2 Delivery O2 Flow Rate FiO2 10/21/16 08:00 97.4 105 18 127/68 92 Manual Cuff/Auscultation 10/21/16 04:00 98.1 91 20 130/78 91 10/21/16 00:00 98.8 89 20 112/72 96 10/20/16 20:07 96 21 10/20/16 20:00 98.7 97 20 102/70 95 10/20/16 16:07 97.8 88 18 110/68 95 I/O 10/20/16 10/20/16 10/20/16 10/21/16 10/21/16 10/21/16 06:59 14:59 22:59 06:59 14:59 22:59 Intake Total 672 ml 875 ml 538 ml 309 ml Output Total 550 ml 800 ml 800 ml 400 ml Balance 122 ml 75 ml -262 ml -91 ml Intake Oral 200 ml 360 ml 360 ml 200 ml IV Total 472 ml 515 ml 178 ml 109 ml Output Urine Total 550 ml 800 ml 800 ml 400 ml # Bowel Movements 0 2 0 1 Result Diagram: 10/21/16 0834 10/21/16 0834 Imaging Last Impressions Chest X-Ray 10/14/16 0000 Signed Impressions: Service Date/Time: Friday, October 14, 2016 14:12 - CONCLUSION: 1. Diffuse infiltrate throughout the left lung base concerning for a left basilar pneumonia. Raffy Wyatt MD Abdomen X-Ray 10/14/16 0000 Signed Impressions: Service Date/Time: Friday, October 14, 2016 07:25 - CONCLUSION: 1. Right sided nephroureteral stent with multiple right-sided calculi the largest measuring 13 mm. 2. Multiple left-sided renal calculi appear unchanged. Fahad Uribe MD Objective Remarks GENERAL: Patient is a 61 yo male, appearing older than the stated age, skinny, cachectic appearing, however not in apparent acute distress. SKIN: Pale, Warm and dry. HEAD: Normocephalic. EYES: No scleral icterus. No injection or drainage. NECK: Supple, trachea midline. No JVD or lymphadenopathy. CARDIOVASCULAR: Regular rate and rhythm without murmurs, gallops, or rubs. RESPIRATORY: Breath sounds equal bilaterally. No accessory muscle use. + nonproductive Cough. GASTROINTESTINAL: Abdomen soft, non-tender, nondistended. MUSCULOSKELETAL: No cyanosis, or edema. Splint applied to RLE. Left upper extremity hemiparesis. BACK: Nontender without obvious deformity. No CVA tenderness. A/P Problem List: (1) Thrombocytopenia ICD Code: D69.6 Status: Acute (2) Nephrolithiasis ICD Code: N20.0 Status: Acute (3) History of CVA (cerebrovascular accident) ICD Code: Z86.73 Status: Acute (4) HCAP (healthcare-associated pneumonia) ICD Code: J18.9 Status: Acute (5) UTI (urinary tract infection) ICD Code: N39.0 Status: Acute (6) Hypotension ICD Code: I95.9 Status: Acute (7) Hypokalemia ICD Code: E87.6 Status: Acute (8) Dysphagia ICD Code: R13.10 Status: Acute Assessment and Plan Thrombocytopenia: Multifactorial, consumption/ infection/ healing fx, r/o DIC. Appreciate hem/onc input. Platelet decreasing, Appreciate input from hematology. Continue treatment for pneumonia and hold Nuedexta. CBC in a.m. History of renal calculi: Abdomen x-ray negative per review with finding of Right sided nephroureteral stent with multiple right-sided calculi the largest measuring 13 mm. 2. Multiple left-sided renal calculi appear unchanged. Patient to have ESWL control possible next week once thrombocytopenia improved. Hematology following. Hypertension: Has had hypotension. Off. Home medications resumed. Hypotension: Resolved with boluses NS on 10/15/16. HCAP: Chest x-ray with finding of Diffuse infiltrate throughout the left lung base . Continue with IV antibiotics including Rocephin and azithromycin, monitor sputum, blood culture. Maintain oxygen saturation above 92%. DuoNeb when necessary. UTI: Resolved as Urine culture negative Acute renal failure: Renal indices improving, continue with IV fluid hydration 125cc/hr . Avoid all nephrotoxic drugs and monitor BUN and creatinine Physical deconditioning: PT to treat and eval Decubitus ulcer: Appreciate input from wound care nurse, continue with current treatment. Repositioning every 2 hour. Hypokalemia: Resolved Dysphagia: Passed swallow eval, continue with current diet. Other chronic medical conditions: Continue outpatient medication DVT prophylaxis: SCDs to right lower extremity only Discharge Planning Likely DC back to SNF when improved and cleared by consultants. Grace Farrar MD Oct 21, 2016 13:34
--- NOTE | 2016-10-21 13:35 | HHI.DS ---
Discharge Summary Admission Date Oct 15, 2016 at 11:27 Discharge Date: Oct 21, 2016 Admitting Diagnosis (1) Thrombocytopenia ICD Code: D69.6 Diagnosis: Secondary (2) Nephrolithiasis ICD Code: N20.0 Diagnosis: Secondary (3) History of CVA (cerebrovascular accident) ICD Code: Z86.73 Diagnosis: Secondary (4) HCAP (healthcare-associated pneumonia) ICD Code: J18.9 Diagnosis: Secondary (5) UTI (urinary tract infection) ICD Code: N39.0 Diagnosis: Secondary (6) Hypotension ICD Code: I95.9 Diagnosis: Secondary (7) Hypokalemia ICD Code: E87.6 Diagnosis: Principal (8) Dysphagia ICD Code: R13.10 Diagnosis: Principal Procedures none Brief History - From Admission 61 year-old male with a history of prior CVA with residual left-sided hemiparesis, cerebral aneurysm status post coiling, bilateral renal calculi with retained double-J stent in place who was scheduled to undergo repeat right sided ESWL today 10/14/16 by urology however patient was found to have abnormal lab including platelet of 80. Patient denies any history of easy bruising, GI bleed, hemoptysis, hematuria. He is currently a resident of a local nursing facility, where patient is being treated with Nuedexta. He was seen in same day surgery, and only alert and oriented to self, CBC/BMP: 10/21/16 0834 10/21/16 0834 Significant Findings Laboratory Tests Test 10/19/16 10/19/16 10/19/16 10/20/16 11:37 12:40 22:48 09:03 Activated Partial 32.0 SEC Thromboplast Time (24.3-30.1) Red Blood Count 3.63 MIL/MM3 3.77 MIL/MM3 (4.50-5.90) (4.50-5.90) Hemoglobin 10.8 GM/DL 11.3 GM/DL (13.0-17.0) (13.0-17.0) Hematocrit 33.0 % 33.7 % (39.0-51.0) (39.0-51.0) Platelet Count 69 TH/MM3 58 TH/MM3 (150-450) (150-450) Potassium Level 2.6 MEQ/L 2.9 MEQ/L (3.5-5.1) (3.5-5.1) Estimat Glomerular Filtration 72 ML/MIN (>89) 70 ML/MIN (>89) 73 ML/MIN (>89) Rate Random Glucose 68 MG/DL 60 MG/DL (74-106) (74-106) Calcium Level 6.3 MG/DL 6.5 MG/DL 7.0 MG/DL (8.5-10.1) (8.5-10.1) (8.5-10.1) Protein Corrected Calcium 6.9 MG/DL 7.0 MG/DL 7.7 MG/DL (8.5-10.1) (8.5-10.1) (8.5-10.1) Magnesium Level 1.0 MG/DL (1.5-2.5) Total Protein 5.9 GM/DL 6.1 GM/DL 5.8 GM/DL (6.4-8.2) (6.4-8.2) (6.4-8.2) Chloride Level 108 MEQ/L 109 MEQ/L (98-107) (98-107) Eosinophils % 9 % (0-4) Myelocytes 1 % (0-0) Platelet Estimate LOW (NORMAL) Carbon Dioxide Level 19.7 MEQ/L (21.0-32.0) Test 10/20/16 10/21/16 10:37 08:34 Prothrombin Time 11.7 SEC (9.8-11.6) Activated Partial 31.0 SEC Thromboplast Time (24.3-30.1) Red Blood Count 3.68 MIL/MM3 (4.50-5.90) Hemoglobin 11.0 GM/DL (13.0-17.0) Hematocrit 32.6 % (39.0-51.0) Platelet Count 94 TH/MM3 (150-450) Neutrophils (%) (Auto) 71.2 % (16.0-70.0) Monocytes (%) (Auto) 9.4 % (0.0-8.0) Eosinophils (%) (Auto) 9.1 % (0.0-4.0) Lymphocytes # (Auto) 0.8 TH/MM3 (1.0-4.8) Eosinophils # (Auto) 0.7 TH/MM3 (0-0.4) Platelet Estimate LOW (NORMAL) Chloride Level 108 MEQ/L (98-107) Estimat Glomerular Filtration 88 ML/MIN (>89) Rate Random Glucose 71 MG/DL (74-106) Calcium Level 6.9 MG/DL (8.5-10.1) Protein Corrected Calcium 7.7 MG/DL (8.5-10.1) Total Protein 5.5 GM/DL (6.4-8.2) Imaging Last Impressions Chest X-Ray 10/14/16 0000 Signed Impressions: Service Date/Time: Friday, October 14, 2016 14:12 - CONCLUSION: 1. Diffuse infiltrate throughout the left lung base concerning for a left basilar pneumonia. Raffy Wyatt MD Abdomen X-Ray 10/14/16 0000 Signed Impressions: Service Date/Time: Friday, October 14, 2016 07:25 - CONCLUSION: 1. Right sided nephroureteral stent with multiple right-sided calculi the largest measuring 13 mm. 2. Multiple left-sided renal calculi appear unchanged. Fahad Uribe MD PE at Discharge GENERAL: Patient is a 61 yo male, appearing older than the stated age, skinny, cachectic appearing, however not in apparent acute distress. SKIN: Pale, Warm and dry. HEAD: Normocephalic. EYES: No scleral icterus. No injection or drainage. NECK: Supple, trachea midline. No JVD or lymphadenopathy. CARDIOVASCULAR: Regular rate and rhythm without murmurs, gallops, or rubs. RESPIRATORY: Breath sounds equal bilaterally. No accessory muscle use. + nonproductive Cough. GASTROINTESTINAL: Abdomen soft, non-tender, nondistended. MUSCULOSKELETAL: No cyanosis, or edema. Splint applied to RLE. Left upper extremity hemiparesis. BACK: Nontender without obvious deformity. No CVA tenderness. Hospital Course Thrombocytopenia: Multifactorial, consumption/ infection/ healing fx, r/o DIC. Appreciate hem/onc input. Platelet decreasing, Appreciate input from hematology. Continue treatment for pneumonia and hold Nuedexta. History of renal calculi: Abdomen x-ray negative per review with finding of Right sided nephroureteral stent with multiple right-sided calculi the largest measuring 13 mm. 2. Multiple left-sided renal calculi appear unchanged. Patient to have ESWL control possible next week once thrombocytopenia improved. Hematology following. Hypertension: Has had hypotension. Off. Home medications resumed. Hypotension: Resolved with boluses NS on 10/15/16. HCAP: Chest x-ray with finding of Diffuse infiltrate throughout the left lung base . Continue with IV antibiotics including Rocephin and azithromycin, monitor sputum, blood culture. Maintain oxygen saturation above 92%. DuoNeb when necessary. UTI: Resolved as Urine culture negative Acute renal failure: Renal indices improving, continue with IV fluid hydration 125cc/hr . Avoid all nephrotoxic drugs and monitor BUN and creatinine Physical deconditioning: PT to treat and eval Decubitus ulcer: Appreciate input from wound care nurse, continue with current treatment. Repositioning every 2 hour. Hypokalemia: Resolved Dysphagia: Passed swallow eval, continue with current diet. Other chronic medical conditions: Continue outpatient medication DVT prophylaxis: SCDs to right lower extremity only Discharge Planning Improved. DC back to SNF in fairly well condition, to follow up as OP with PCP and consultants. Pt Condition on Discharge: Fair Discharge Disposition: Discharge to SNF Discharge Time: > 30 minutes Discharge Instructions DIET: Follow Instructions for: Heart Healthy Diet Speech Therapy-Diet Recommends: Honey Thickened Liquids, Pureed Additional Diet Instructions: pureed honey thick Activities you can perform: Regular-No Restrictions Follow up Referrals: Oncology - 1 Week PCP Follow-up - 3-5 Days SNF/[facility]/ with [facility] New Medications: Cyanocobalamin (B-12) 1,000 Mcg Lozg 1000 MCG BUCCAL DAILY Nutritional Supplement #15 Ref 0 BOTTLE Megestrol Liq (Megestrol Liq) 40 Mg/Ml Susp 400 MG PO DAILY appetite enhancer Days 30 BOTTLE Continued Medications: Acetaminophen (Acetaminophen) 325 Mg Tab 650 MG PO Q4-6H PRN PAIN SCALE 1 TO 10 Ref 0 TAB Amlodipine (Norvasc) 5 Mg Tab 5 MG PO DAILY Blood Pressure Management #30 Ref 0 TAB Cefuroxime (Ceftin) 500 Mg Tab 500 MG PO BID Infection #10 Ref 0 TAB (This prescription has been renewed) Clonidine (Clonidine) 0.1 Mg Tab 0.1 MG PO Q8HR PRN SBP>160, DBP>90 #60 Ref 0 TAB Dextromethorphan HBr-Quinidine (Nuedexta 20-10 mg) 1 Cap Cap 1 CAP PO BID Pseudobulbar Affect #60 Ref 0 CAP Diltiazem ER 24 HR (Diltiazem ER 24 HR) 300 Mg Caper 300 MG PO DAILY #30 Ref 0 CAP Docusate Sodium (Docusate Sodium) 100 Mg Cap 100 MG PO Q12 PRN CONSTIPATION #60 Ref 0 CAP Gabapentin (Gabapentin) 100 Mg Cap 400 MG PO Q8HR #90 Ref 0 CAP Ipratropium-Albuterol Neb (Duoneb) 0.5-2.5 Mg/3 Ml Neb 1 NEBULE INH Q6HR NEB Breathing Treatment #120 Ref 0 NEBULE Levofloxacin (Levaquin) 750 Mg Tab 750 MG PO DAILY Infection #5 Ref 0 TAB (This prescription has been renewed) Loratadine (Loratadine) 10 Mg Tab 10 MG PO DAILY Allergy Management Ref 0 TAB Lorazepam (Lorazepam) 0.5 Mg Tab 0.5 MG PO Q8HR Anxiety #30 TAB (This prescription has been renewed) Magnesium Citrate Liq (Citroma Liq) 300 Ml Liq 300 ML PO DAILY PRN CONSTIPATION Oxycodone ER (Oxycontin) 20 Mg Tab 20 MG PO Q12HR Pain Management #15 Ref 0 TAB (This prescription has been renewed ) Oxycodone-Acetaminophen (Percocet) 10-325 mg Tab 1 TAB PO Q6H PRN PAIN #15 Ref 0 TAB (This prescription has been renewed) Zolpidem (Ambien) 10 Mg Tab 10 MG PO HS PRN INSOMNIA Ref 0 TAB Grace Farrar MD Oct 21, 2016 13:35
--- NOTE | 2016-10-21 15:15 | PD.ONC.PN ---
Subjective Subjective Remarks Afebrile overnight. Pt resting in bed in no distress. He denies any complaints. No bleeding. Objective Data Date Time Temp Pulse Resp B/P Pulse Ox O2 Delivery O2 Flow Rate FiO2 10/21/16 12:00 97.9 106 16 113/59 97 10/21/16 08:00 97.4 105 18 127/68 92 Manual Cuff/Auscultation 10/21/16 04:00 98.1 91 20 130/78 91 10/21/16 00:00 98.8 89 20 112/72 96 10/20/16 20:07 96 21 10/20/16 20:00 98.7 97 20 102/70 95 10/20/16 16:07 97.8 88 18 110/68 95 10/21/16 10/21/16 10/21/16 07:00 15:00 23:00 Intake Total 309 ml Output Total 400 ml Balance -91 ml Result Diagram: 10/21/16 0834 10/21/16 0834 Laboratory Results Laboratory Tests Test 10/21/16 08:34 White Blood Count 7.6 TH/MM3 Red Blood Count 3.68 MIL/MM3 Hemoglobin 11.0 GM/DL Hematocrit 32.6 % Mean Corpuscular Volume 88.4 FL Mean Corpuscular Hemoglobin 29.8 PG Mean Corpuscular Hemoglobin 33.7 % Concent Red Cell Distribution Width 14.4 % Platelet Count 94 TH/MM3 Mean Platelet Volume 10.5 FL Neutrophils (%) (Auto) 71.2 % Lymphocytes (%) (Auto) 9.9 % Monocytes (%) (Auto) 9.4 % Eosinophils (%) (Auto) 9.1 % Basophils (%) (Auto) 0.4 % Neutrophils # (Auto) 5.4 TH/MM3 Lymphocytes # (Auto) 0.8 TH/MM3 Monocytes # (Auto) 0.7 TH/MM3 Eosinophils # (Auto) 0.7 TH/MM3 Basophils # (Auto) 0.0 TH/MM3 CBC Comment AUTO DIFF Differential Comment AUTO DIFF CONFIRMED Platelet Estimate LOW Platelet Morphology Comment NORMAL Sodium Level 142 MEQ/L Potassium Level 3.7 MEQ/L Chloride Level 108 MEQ/L Carbon Dioxide Level 23.6 MEQ/L Anion Gap 10 MEQ/L Blood Urea Nitrogen 8 MG/DL Creatinine 0.88 MG/DL Estimat Glomerular Filtration 88 ML/MIN Rate Random Glucose 71 MG/DL Calcium Level 6.9 MG/DL Protein Corrected Calcium 7.7 MG/DL Total Protein 5.5 GM/DL Administered Medications Medications (Trade) Dose Ordered Sig/Janelle Route PRN Reason Start Time Stop Time Status Last Admin Dose Admin Lactated Ringer's (Lr 1000 ml Inj) 1,000 ml @ 30 mls/hr Q24H IV 10/14/16 07:00 10/14/16 07:45 IV Flush (NS Flush) 2 ml BID FLUSH 10/14/16 21:00 10/21/16 09:52 Amlodipine Besylate (Norvasc) 5 mg DAILY PO 10/15/16 09:00 10/21/16 09:51 Diltiazem HCl (Cardizem Cd) 300 mg DAILY PO 10/15/16 09:00 10/21/16 09:51 Loratadine (Claritin) 10 mg DAILY PO 10/15/16 09:00 10/21/16 09:51 Lorazepam (Ativan) 0.5 mg Q8H PRN PO ANXIETY 10/14/16 11:45 10/18/16 00:32 Oxycodone HCl 20 mg 20 mg Q12HR PO 10/14/16 21:00 10/21/16 09:52 Ceftriaxone Sodium/Sodium Chloride (Rocephin Inj/NS Inj) 100 ml @ 200 mls/hr Q24H IV 10/14/16 18:00 10/20/16 16:54 Azithromycin (Zithromax) 500 mg DAILY PO 10/15/16 09:00 10/21/16 09:51 Acetaminophen/ Hydrocodone Bitart ([place] 5-325 Mg) 1 tab Q4H PRN PO BREAKTHROUGH PAIN 10/14/16 16:45 10/19/16 17:27 Cyanocobalamin (Vitamin B12 Inj) 1,000 mcg DAILY IM 10/15/16 17:15 10/21/16 09:55 Calcium Carbonate (Tums Chew) 500 mg Q12HR CHEW 10/21/16 11:30 10/21/16 12:48 Objective Remarks GENERAL: Elderly male, lying supine in bed. SKIN: Warm and dry. HEAD: Normocephalic. EYES: No injection or drainage. NECK: Supple, trachea midline. CARDIOVASCULAR: +S1/S2 RESPIRATORY: anterior lozano clear. GASTROINTESTINAL: Abdomen soft, non-tender, nondistended. EXTREMITIES: No cyanosis. left leg shortened. NEUROLOGICAL: awake, able to move extremities. normal speech. Assessment/Plan Problem List: (1) Thrombocytopenia Status: Acute Plan: --likely DIC due to recent pneumonia +hemodilution --may also have consumptive process from the nonhealing hip fracture and decubitus ulcer and wound. no bleeding noted. (2) Pneumonia Status: Acute Plan: --was diagnosed with pneumonia while in the senior care where he was treated with Levaquin. --repeat chest x-ray showed diffuse infiltrates throughout the left lung base. --started back on Rocephin and Zithromax inpatient (3) Normocytic anemia Status: Acute Plan: --Mild anemia, likely due to underlying infection. --B12 low normal --will start replacement to assist with hematopoiesis --folate WNL --iron studies more consistent with anemia of chronic disease Assessment 61y/o male with thrombocytopenia. --initially admitted for outpatient lithotripsy and incidentally found to have platelet count of 80K. --multiple decubitus ulcers h/o Stroke with left-sided weakness. Cerebral aneurysm status post coiling. Bilateral renal calculi and double J stent placement. Hypertension. Left hip fracture, non-surgical candidate Plan 1. Thrombocytopenia improved. Monitor CBC 2. Levaquin, Rocephin continued for treatment of pneumonia. 3. He would benefit from once monthly B12 injections going forward. 4. Supportive care. Attending Statement The exam, history, and the medical decision-making described in the above note were completed with the assistance of the mid-level provider. I reviewed and agree with the findings presented. I attest that I had a [id number] encounter with the patient on the same day, and personally performed and documented my assessment and findings in the medical record. Feeling better, Platelet counts improving. Continue B12 supplement. Monitor CBC. Bettina Flores Oct 21, 2016 15:15 Jeff Jade MD Oct 21, 2016 17:08
[2016-10-22] MEDS ORDERED: MEGESTROL ACETATE SUSP 400 MG/10 ML CUP PO SCH (09:00)
== END 2016-10-21 15:45 | DRG 813 ==
LOC: HSDC 06:41 → HSDI 11:34 → N04B 19:00 → OBSVTOIN 10-15 11:27
PROVIDERS: ADMIT Hospitalist; ATTEND Hospitalist
DX: D65 Disseminated intravascular coagulation [defibrination syndrome] (principal); N17.9 Acute kidney failure, unspecified; J18.9 Pneumonia, unspecified organism; L89.152 Pressure ulcer of sacral region, stage 2; L89.322 Pressure ulcer of left buttock, stage 2; I69.354 Hemiplegia and hemiparesis following cerebral infarction affecting left non-dominant side; N13.8 Other obstructive and reflux uropathy; N39.0 Urinary tract infection, site not specified; R13.10 Dysphagia, unspecified; E87.6 Hypokalemia; N40.1 Benign prostatic hyperplasia with lower urinary tract symptoms; K21.9 Gastro-esophageal reflux disease without esophagitis; E78.5 Hyperlipidemia, unspecified; D64.9 Anemia, unspecified; Y95 Nosocomial condition; I12.9 Hypertensive chronic kidney disease with stage 1 through stage 4 chronic kidney disease, or unspecified chronic kidney disease; N18.9 Chronic kidney disease, unspecified; Z87.442 Personal history of urinary calculi
CPT/HCPCS: 71010; 74000; 76937; 80048; 80053; 81001; 82607; 82728; 82746; 83540; 83550; 83615; 83735; 83921; 84100; 84155; 85007; 85025; 85027; 85044; 85384; 85610; 85730; 87086; 94664; 99211; G0463; J0610; J0690; J0696; J3420; J3475; J3480; J7030; J7040; J7120